=== PATIENT | female | born 1955 | race Caucasian/White ===

== ENCOUNTER 2017-10-18 10:23 | Inpatient (IN) | payer OTHER ==
[~2017-10-18] VITALS: Ht 162.6 cm; Wt 69.2 kg
[2017-10-18] MEDS ORDERED: ZOCOR 40MG40 MG PO (11:14)
[2017-10-18] MEDS ORDERED: VALIUM 5MG T5 MG/TAB PO (11:14)
[2017-10-18] MEDS ORDERED: NEXIUM 40MG40 MG PO (11:16)
[2017-10-18] MEDS ORDERED: PROCARDIA XL 6060 MG PO (11:16)
[2017-10-18 11:22] LABS: BASO # 0.1 (0.0-0.2); BASO % 0.6 % (0.0-2.0); EOS # 0.1 (0.0-0.7); EOS % 1.1 % (0-4.0); GRAN # 6.4 (1.4-6.5); HEMATOCRIT 41.3 % (37.0-47.0); LYMPH # 1.9 (1.2-3.4); LYMPH % 19.5 % (20.0-51.0); MEAN CELL VOLUME 93 fl (80.0-100.0); MEAN CORPUSCULAR HEMOGLOBIN 34 pg (27.0-31.0); MEAN CORPUSCULAR HGB CONC 36 g/dl (33.0-37.0); MEAN PLATELET VOLUME 8.1 fl (7.4-10.4); MONO # 1.1 (0.1-0.6); MONO % 11.5 % (1.7-9.3); PLATELET COUNT 352 K/mm3 (130-400); RED BLOOD COUNT 4.42 M/mm3 (4.10-5.30); REDCELL DISTRIBUTION WIDTH-CV 12.4 % (11.5-14.5)
[2017-10-18 11:26] LABS: ALANINE AMINOTRANSFERASE 46 U/L (9-52); ALBUMIN 4.3 gm/dL (3.5-5.0); ALKALINE PHOSPHATASE 52 U/L (50-136); ANION GAP 11 mmol/L (7-16); AST,SGOT 22 U/L (15-37); BILIRUBIN,TOTAL 0.8 mg/dL (0.0-1.0); BLOOD UREA NITROGEN 8 mg/dL (7-17); CALCIUM 9.4 mg/dL (8.4-10.2); CARBON DIOXIDE 23 mmol/L (22-30); CHLORIDE 91 mmol/L (98-107); CREATININE, serum 0.46 mg/dL (0.52-1.25); GLUCOSE 102 mg/dL (74-106); PHOSPHOROUS 3.3 mg/dL (2.5-4.5); POTASSIUM 4.1 mmol/L (3.4-5.0); SODIUM 125 mmol/L (137-145); TOTAL PROTEIN 7.1 gm/dL (6.4-8.2)
[2017-10-18 11:40] LABS: TROPONIN-I < 0.012 ng/mL (0.000-0.034)
[2017-10-18 15:15] LABS: COLLECTION METHOD CLEAN CATCH
[2017-10-18 15:23] LABS: BUDDING YEAST Present /hpf; PH 7 (5-8); SQUAMOUS EPITHELIAL 0-2 /hpf; URINE APPEARANCE Hazy; URINE BACTERIA Rare /hpf; URINE BILIRUBIN Negative (NEGATIVE); URINE BLOOD 1+ (NEGATIVE); URINE COLOR Yellow; URINE GLUCOSE Negative (NEGATIVE); URINE KETONE Negative (NEGATIVE); URINE LEUKOCYTE ESTERASE Negative (NEGATIVE); URINE NITRATE Negative (NEGATIVE); URINE PROTEIN(semi-quant) Negative (NEGATIVE); URINE UROBILINOGEN Negative (NEGATIVE)
[2017-10-18 16:44] VITALS: BP 119/67; PULSE 70; TEMP 97.8
[2017-10-18 16:45] VITALS: BP 119/67; PULSE 70; TEMP 97.8
[2017-10-18 19:22] VITALS: BP 125/72; PULSE 86; TEMP 98.2
[2017-10-18 20:45] VITALS: BP 119/75
[2017-10-18 23:47] VITALS: BP 124/68; PULSE 76; TEMP 100.3
[2017-10-19] VITALS (182 sets, daily range): BP systolic 101–139; BP diastolic 67–88; PULSE 65–83; TEMP 98.1–98.7; O2SAT 91–99
[2017-10-19 00:37] LABS: CALCIUM 8.7 mg/dL (8.4-10.2); CREATININE, serum 0.52 mg/dL (0.52-1.25); POTASSIUM 4.3 mmol/L (3.4-5.0)
[2017-10-19 01:46] LABS: BASO # 0.1 (0.0-0.2); BASO % 0.6 % (0.0-2.0); EOS # 0.1 (0.0-0.7); EOS % 1.3 % (0-4.0); GRAN # 6.2 (1.4-6.5); GRAN % 64.5 % (42.2-75.2); HEMATOCRIT 38.6 % (37.0-47.0); HEMOGLOBIN 13.9 g/dl (12.5-16.0); LYMPH # 2.1 (1.2-3.4); LYMPH % 22.4 % (20.0-51.0); MEAN CELL VOLUME 93 fl (80.0-100.0); MEAN CORPUSCULAR HEMOGLOBIN 34 pg (27.0-31.0); MEAN CORPUSCULAR HGB CONC 36 g/dl (33.0-37.0); MEAN PLATELET VOLUME 7.9 fl (7.4-10.4); MONO % 10.8 % (1.7-9.3); PLATELET COUNT 327 K/mm3 (130-400); RED BLOOD COUNT 4.14 M/mm3 (4.10-5.30); REDCELL DISTRIBUTION WIDTH-CV 12.6 % (11.5-14.5)
[2017-10-19 01:55] LABS: ALANINE AMINOTRANSFERASE 46 U/L (9-52); ALBUMIN 3.6 gm/dL (3.5-5.0); ALKALINE PHOSPHATASE 53 U/L (50-136); ANION GAP 8 mmol/L (7-16); AST,SGOT 24 U/L (15-37); BILIRUBIN,TOTAL 0.6 mg/dL (0.0-1.0); BLOOD UREA NITROGEN 7 mg/dL (7-17); CALCIUM 8.9 mg/dL (8.4-10.2); CARBON DIOXIDE 24 mmol/L (22-30); CHLORIDE 94 mmol/L (98-107); CREATININE, serum 0.46 mg/dL (0.52-1.25); GLUCOSE 94 mg/dL (74-106); MAGNESIUM 1.9 mg/dL (1.6-2.3); SODIUM 127 mmol/L (137-145); TOTAL PROTEIN 6.4 gm/dL (6.4-8.2)
[2017-10-19 02:10] LABS: TROPONIN-I < 0.012 ng/mL (0.000-0.034)
[2017-10-19 06:03] LABS: BASO # 0.1 (0.0-0.2); BASO % 0.6 % (0.0-2.0); EOS # 0.1 (0.0-0.7); EOS % 1.3 % (0-4.0); GRAN # 7.2 (1.4-6.5); GRAN % 65.5 % (42.2-75.2); HEMATOCRIT 40.4 % (37.0-47.0); HEMOGLOBIN 14.3 g/dl (12.5-16.0); LYMPH # 2.3 (1.2-3.4); LYMPH % 20.7 % (20.0-51.0); MEAN CELL VOLUME 95 fl (80.0-100.0); MEAN CORPUSCULAR HEMOGLOBIN 34 pg (27.0-31.0); MEAN CORPUSCULAR HGB CONC 35 g/dl (33.0-37.0); MEAN PLATELET VOLUME 8.2 fl (7.4-10.4); MONO # 1.3 (0.1-0.6); MONO % 11.5 % (1.7-9.3); PLATELET COUNT 371 K/mm3 (130-400); RED BLOOD COUNT 4.25 M/mm3 (4.10-5.30); REDCELL DISTRIBUTION WIDTH-CV 12.7 % (11.5-14.5)
[2017-10-19 06:15] LABS: CALCIUM 9.2 mg/dL (8.4-10.2); CREATININE, serum 0.52 mg/dL (0.52-1.25); POTASSIUM 3.6 mmol/L (3.4-5.0)
[2017-10-19 06:36] LABS: HIV 1/2 Antibodies Non-Reactive; HIV-1p24 Antigen Non-Reactive
[2017-10-19 14:03] LABS: FOLATE (FOLIC ACID) 13.1 ng/mL (7.0-31.4)
[2017-10-19 17:07] LABS: GLUCOSE,CSF 58 mg/dL (40-70); TOTAL PROTEIN,CSF 173 mg/dL (15-45)
[2017-10-19 17:34] LABS: CSF APPEARANCE CLEAR; CSF COLOR COLORLESS; CSF RBC 6 /mm3 (0-0)
[2017-10-19 17:35] LABS: CSF MONONUCLEAR 100 % (70-100); CSF POLYMORPHONUCLEAR 0 % (0-6)
[2017-10-20 02:09] LABS: RPR (VDRL) Non-reactive (())
[2017-10-20 03:35] VITALS: BP 120/75; PULSE 71; TEMP 98.8
[2017-10-20 06:52] LABS: BASO # 0.1 (0.0-0.2); BASO % 0.4 % (0.0-2.0); EOS # 0.1 (0.0-0.7); EOS % 0.4 % (0-4.0); GRAN # 7.6 (1.4-6.5); GRAN % 67.6 % (42.2-75.2); HEMATOCRIT 38.2 % (37.0-47.0); HEMOGLOBIN 13.6 g/dl (12.5-16.0); LYMPH # 2.1 (1.2-3.4); LYMPH % 18.6 % (20.0-51.0); MEAN CELL VOLUME 94 fl (80.0-100.0); MEAN CORPUSCULAR HEMOGLOBIN 34 pg (27.0-31.0); MEAN CORPUSCULAR HGB CONC 36 g/dl (33.0-37.0); MEAN PLATELET VOLUME 8.3 fl (7.4-10.4); MONO # 1.4 (0.1-0.6); MONO % 12.6 % (1.7-9.3); PLATELET COUNT 311 K/mm3 (130-400); RED BLOOD COUNT 4.05 M/mm3 (4.10-5.30); REDCELL DISTRIBUTION WIDTH-CV 12.5 % (11.5-14.5)
[2017-10-20 07:04] LABS: CALCIUM 8.9 mg/dL (8.4-10.2); CREATININE, serum 0.39 mg/dL (0.52-1.25); POTASSIUM 3.5 mmol/L (3.4-5.0)
[2017-10-20 07:21] VITALS: BP 117/64; PULSE 72; TEMP 98.5
[2017-10-20 12:52] VITALS: BP 106/63; PULSE 84; TEMP 98
[2017-10-20 16:29] VITALS: BP 120/64; PULSE 84
[2017-10-20 19:18] VITALS: BP 119/74; PULSE 80; TEMP 98.6
[2017-10-21] VITALS (7 sets, daily range): BP systolic 94–143; BP diastolic 59–77; PULSE 68–92; TEMP 97.8–100.5
[2017-10-21 06:52] LABS: CALCIUM 8.6 mg/dL (8.4-10.2); CREATININE, serum 0.38 mg/dL (0.52-1.25); POTASSIUM 3.3 mmol/L (3.4-5.0)
[2017-10-21 08:40] LABS: VITAMIN B1 148 nmol/L (70-180)
[2017-10-22 00:39] VITALS: TEMP 99
[2017-10-22 04:01] VITALS: BP 122/49; PULSE 63; TEMP 97.9
[2017-10-22 07:15] LABS: BASO # 0.1 (0.0-0.2); BASO % 0.6 % (0.0-2.0); EOS # 0.2 (0.0-0.7); EOS % 1.7 % (0-4.0); GRAN # 5.9 (1.4-6.5); GRAN % 62.5 % (42.2-75.2); HEMOGLOBIN 11.8 g/dl (12.5-16.0); LYMPH # 2.1 (1.2-3.4); LYMPH % 22.1 % (20.0-51.0); MEAN CELL VOLUME 95 fl (80.0-100.0); MEAN CORPUSCULAR HEMOGLOBIN 33 pg (27.0-31.0); MEAN CORPUSCULAR HGB CONC 35 g/dl (33.0-37.0); MEAN PLATELET VOLUME 8.5 fl (7.4-10.4); MONO # 1.2 (0.1-0.6); MONO % 12.8 % (1.7-9.3); PLATELET COUNT 263 K/mm3 (130-400); RED BLOOD COUNT 3.58 M/mm3 (4.10-5.30); REDCELL DISTRIBUTION WIDTH-CV 12.7 % (11.5-14.5)
[2017-10-22 07:25] LABS: CALCIUM 8.5 mg/dL (8.4-10.2); CREATININE, serum 0.39 mg/dL (0.52-1.25); POTASSIUM 3.3 mmol/L (3.4-5.0)
[2017-10-22 08:00] VITALS: BP 130/70; PULSE 74; TEMP 97.5
[2017-10-22 08:32] LABS: CSF IGG/ALBUMIN 0.12 (<=0.21); CSF SYNTHESIS RATE 33.93 mg/24 h (<=12); CSF,IGG 12.8 mg/dL (<=8.1); CSF-IGG INDEX 0.92 (<=0.85); IGG/ALBUMIN SERUM 0.13 (<=0.40)
[2017-10-22 11:40] VITALS: BP 98/61; PULSE 77; TEMP 98.2
[2017-10-22 15:52] VITALS: BP 112/63; PULSE 80; TEMP 98.2
[2017-10-22 19:47] VITALS: BP 126/64; PULSE 86; TEMP 100.2
[2017-10-23 00:16] VITALS: BP 122/73; PULSE 71; TEMP 97.8
[2017-10-23 03:59] VITALS: BP 126/77; PULSE 64; TEMP 98.4
[2017-10-23 07:17] LABS: BASO # 0.1 (0.0-0.2); BASO % 0.6 % (0.0-2.0); EOS # 0.2 (0.0-0.7); EOS % 1.8 % (0-4.0); GRAN % 61.1 % (42.2-75.2); HEMOGLOBIN 12.8 g/dl (12.5-16.0); LYMPH % 24.7 % (20.0-51.0); MEAN CELL VOLUME 96 fl (80.0-100.0); MEAN CORPUSCULAR HEMOGLOBIN 34 pg (27.0-31.0); MEAN CORPUSCULAR HGB CONC 35 g/dl (33.0-37.0); MEAN PLATELET VOLUME 8.7 fl (7.4-10.4); MONO # 0.9 (0.1-0.6); MONO % 11.4 % (1.7-9.3); PLATELET COUNT 312 K/mm3 (130-400); RED BLOOD COUNT 3.81 M/mm3 (4.10-5.30); REDCELL DISTRIBUTION WIDTH-CV 12.7 % (11.5-14.5)
[2017-10-23 07:33] VITALS: BP 134/72; PULSE 74; TEMP 99.2
[2017-10-23 07:35] LABS: CALCIUM 9.2 mg/dL (8.4-10.2); CREATININE, serum 0.43 mg/dL (0.52-1.25); POTASSIUM 3.5 mmol/L (3.4-5.0)
[2017-10-23 07:43] LABS: HEMATOCRIT 36.4 % (37.0-47.0)
[2017-10-23 12:07] VITALS: BP 100/53; PULSE 76; TEMP 98.2
[2017-10-23 16:28] VITALS: BP 108/64; PULSE 79; TEMP 99.9
[2017-10-23 20:20] VITALS: BP 113/67; PULSE 95; TEMP 99.4
[2017-10-24] VITALS (7 sets, daily range): BP systolic 99–136; BP diastolic 51–84; PULSE 66–84; TEMP 98–98.8
[2017-10-24 07:32] LABS: CALCIUM 9.1 mg/dL (8.4-10.2); CREATININE, serum 0.45 mg/dL (0.52-1.25)
[2017-10-25 04:41] VITALS: BP 128/68; PULSE 68; TEMP 98.2
[2017-10-25 07:04] LABS: CALCIUM 9.3 mg/dL (8.4-10.2); CREATININE, serum 0.4 mg/dL (0.52-1.25)
[2017-10-25 08:30] VITALS: BP 138/82; PULSE 72; TEMP 98.2
[2017-10-25 12:19] VITALS: BP 140/84; PULSE 80; TEMP 98.2
[2017-10-25 16:37] VITALS: BP 116/72; PULSE 83; TEMP 98.3
[2017-10-25 20:08] VITALS: BP 119/71; PULSE 80; TEMP 99.6
[2017-10-26] VITALS (7 sets, daily range): BP systolic 111–138; BP diastolic 51–89; PULSE 64–99; TEMP 97.9–98.4
[2017-10-26 09:46] LABS: CALCIUM 9.4 mg/dL (8.4-10.2); CREATININE, serum 0.45 mg/dL (0.52-1.25); POTASSIUM 4.2 mmol/L (3.4-5.0)
[2017-10-26 12:51] LABS: GLUCOSE,CSF 58 mg/dL (40-70); TOTAL PROTEIN,CSF 154 mg/dL (15-45)
[2017-10-26 13:08] LABS: CSF COLOR PINK
[2017-10-26 13:09] LABS: CSF APPEARANCE HAZY; CSF MONONUCLEAR 82 % (70-100); CSF POLYMORPHONUCLEAR 18 % (0-6); CSF RBC 6150 /mm3 (0-0)
[2017-10-27] VITALS (7 sets, daily range): BP systolic 106–128; BP diastolic 60–76; PULSE 62–85; TEMP 97.1–98.9
[2017-10-28 06:27] LABS: CALCIUM 10.2 mg/dL (8.4-10.2); CREATININE, serum 0.37 mg/dL (0.52-1.25)
[2017-10-28 07:51] VITALS: BP 102/67; PULSE 80; TEMP 98
[2017-10-28 11:08] VITALS: BP 108/71; PULSE 73; TEMP 98.2
[2017-10-28 16:36] VITALS: BP 114/70; PULSE 78; TEMP 98.7
[2017-10-28 20:05] VITALS: BP 99/61; PULSE 73; TEMP 96.5
[2017-10-28 23:52] VITALS: BP 121/77; PULSE 68; TEMP 97.5
[2017-10-29 03:43] VITALS: BP 115/69; PULSE 77; TEMP 97.8
[2017-10-29 07:16] LABS: BASO % 0.1 % (0.0-2.0); GRAN # 16.3 (1.4-6.5); GRAN % 85.1 % (42.2-75.2); HEMATOCRIT 40.7 % (37.0-47.0); HEMOGLOBIN 13.9 g/dl (12.5-16.0); LYMPH # 1.2 (1.2-3.4); LYMPH % 6.2 % (20.0-51.0); MEAN CELL VOLUME 99 fl (80.0-100.0); MEAN CORPUSCULAR HEMOGLOBIN 34 pg (27.0-31.0); MEAN CORPUSCULAR HGB CONC 34 g/dl (33.0-37.0); MEAN PLATELET VOLUME 8.4 fl (7.4-10.4); MONO # 1.4 (0.1-0.6); MONO % 7.2 % (1.7-9.3); PLATELET COUNT 461 K/mm3 (130-400); REDCELL DISTRIBUTION WIDTH-CV 14.2 % (11.5-14.5)
[2017-10-29 07:28] LABS: CALCIUM 10.6 mg/dL (8.4-10.2); CREATININE, serum 0.49 mg/dL (0.52-1.25); POTASSIUM 4.9 mmol/L (3.4-5.0)
[2017-10-29] MEDS ORDERED: TYLENOL 325MG325 MG PO (07:34)
[2017-10-29] MEDS ORDERED: ANTIVERT 25MG25 MG PO (07:35)
[2017-10-29 07:45] VITALS: BP 123/67; PULSE 81; TEMP 98.5
[2017-10-29 11:07] VITALS: BP 105/67; PULSE 64; TEMP 98.4
[2017-10-29 16:10] VITALS: BP 118/72; PULSE 70; TEMP 97.6
[2017-10-29 20:27] VITALS: BP 109/68; PULSE 63; TEMP 98.3
[2017-10-30] VITALS (7 sets, daily range): BP systolic 122–145; BP diastolic 65–87; PULSE 61–78; TEMP 97.5–98.4
[2017-10-30 05:47] LABS: HEMATOCRIT 42.3 % (37.0-47.0); HEMOGLOBIN 14.2 g/dl (12.5-16.0); MEAN CELL VOLUME 100 fl (80.0-100.0); MEAN CORPUSCULAR HEMOGLOBIN 34 pg (27.0-31.0); MEAN CORPUSCULAR HGB CONC 34 g/dl (33.0-37.0); MEAN PLATELET VOLUME 8.5 fl (7.4-10.4); PLATELET COUNT 479 K/mm3 (130-400); RED BLOOD COUNT 4.23 M/mm3 (4.10-5.30); REDCELL DISTRIBUTION WIDTH-CV 14.3 % (11.5-14.5)
[2017-10-30 06:03] LABS: CALCIUM 10.5 mg/dL (8.4-10.2); CREATININE, serum 0.51 mg/dL (0.52-1.25); POTASSIUM 3.9 mmol/L (3.4-5.0)
[2017-10-30 06:50] LABS: BAND 4 % (0-10); LYMPHOCYTE 15 % (20.0-51.0); NEUTROPHILS 75 % (42.0-75.2); PLATELET ESTIMATE INCREASED (NORMAL)
[2017-10-30 06:52] LABS: BURR CELLS 1+
[2017-10-31 04:21] VITALS: BP 131/85; PULSE 96; TEMP 97.5
[2017-10-31 06:31] LABS: BASO % 0.2 % (0.0-2.0); EOS % 0.1 % (0-4.0); GRAN # 14.4 (1.4-6.5); GRAN % 81.7 % (42.2-75.2); HEMATOCRIT 43.3 % (37.0-47.0); HEMOGLOBIN 14.8 g/dl (12.5-16.0); LYMPH # 1.5 (1.2-3.4); LYMPH % 8.5 % (20.0-51.0); MEAN CELL VOLUME 100 fl (80.0-100.0); MEAN CORPUSCULAR HEMOGLOBIN 34 pg (27.0-31.0); MEAN CORPUSCULAR HGB CONC 34 g/dl (33.0-37.0); MEAN PLATELET VOLUME 8.6 fl (7.4-10.4); MONO # 1.5 (0.1-0.6); MONO % 8.3 % (1.7-9.3); PLATELET COUNT 479 K/mm3 (130-400); RED BLOOD COUNT 4.35 M/mm3 (4.10-5.30)
[2017-10-31 06:49] LABS: CALCIUM 10.6 mg/dL (8.4-10.2); CREATININE, serum 0.51 mg/dL (0.52-1.25); POTASSIUM 3.2 mmol/L (3.4-5.0)
[2017-10-31 07:01] VITALS: BP 138/89; PULSE 82; TEMP 97.7
[2017-10-31 11:23] VITALS: BP 147/93; PULSE 80; TEMP 98.5
[2017-10-31 15:48] VITALS: BP 135/76; PULSE 102; TEMP 97.9
[2017-10-31 19:32] VITALS: BP 117/70; PULSE 73; TEMP 98.3
[2017-10-31 23:20] VITALS: BP 135/84; PULSE 82; TEMP 97.5
[2017-11-01 04:14] VITALS: BP 137/83; PULSE 78; TEMP 97.6
[2017-11-01 06:59] VITALS: BP 148/81; PULSE 60
[2017-11-01 07:04] LABS: BASO % 0.1 % (0.0-2.0); GRAN # 14.3 (1.4-6.5); GRAN % 80.9 % (42.2-75.2); HEMATOCRIT 42.9 % (37.0-47.0); HEMOGLOBIN 14.6 g/dl (12.5-16.0); LYMPH # 1.7 (1.2-3.4); LYMPH % 9.4 % (20.0-51.0); MEAN CELL VOLUME 99 fl (80.0-100.0); MEAN CORPUSCULAR HEMOGLOBIN 34 pg (27.0-31.0); MEAN CORPUSCULAR HGB CONC 34 g/dl (33.0-37.0); MEAN PLATELET VOLUME 8.7 fl (7.4-10.4); MONO # 1.5 (0.1-0.6); MONO % 8.3 % (1.7-9.3); PLATELET COUNT 425 K/mm3 (130-400); RED BLOOD COUNT 4.32 M/mm3 (4.10-5.30); REDCELL DISTRIBUTION WIDTH-CV 14.1 % (11.5-14.5)
[2017-11-01 07:14] LABS: CALCIUM 10.3 mg/dL (8.4-10.2); CREATININE, serum 0.47 mg/dL (0.52-1.25); POTASSIUM 3.8 mmol/L (3.4-5.0)
[2017-11-01 15:59] VITALS: BP 116/72; PULSE 87; TEMP 98.7
[2017-11-01 20:30] VITALS: BP 116/72; PULSE 87; TEMP 97.5
[2017-11-02] VITALS: BP 117/70; PULSE 73; TEMP 97.5
[2017-11-02 04:30] VITALS: BP 141/86; PULSE 69; TEMP 98.5
[2017-11-02 06:55] VITALS: BP 151/81; PULSE 82; TEMP 97.7
[2017-11-02] MEDS ORDERED: SEROQUEL 2525 MG/TAB PO (11:47)
[2017-11-02] MEDS ORDERED: PREDNISONE10 MG PO (11:50)
[2017-11-02 13:23] VITALS: BP 115/77; PULSE 66; TEMP 97.7
[2017-11-02 14:05] VITALS: BP 115/77; PULSE 66; TEMP 97.7
[2017-11-02 15:21] VITALS: BP 122/76; PULSE 81; TEMP 97.7
== END 2017-11-02 16:25 | DRG 41 ==
LOC: COL.ER 10:23 → MEDICAL 12:31 → ICU 10-19 02:00 → MEDICAL 10-19 07:21 → ICU 10-19 07:21 → MEDICAL 10-19 09:51
PROVIDERS: Emergency Medicine; Hospitalist; Nurse Practitioner Family; Physician Assistant; Psychiatry & Neurology Neurology; Student in an Organized Health Care Education/Training Program
PROC: 0JH606Z Insertion of Pacemaker, Dual Chamber into Chest Subcutaneous Tissue and Fascia, Open Approach (ICD-10-PCS; principal; 2017-10-19)
PROC: 02H63JZ Insertion of Pacemaker Lead into Right Atrium, Percutaneous Approach (ICD-10-PCS; 2017-10-19)
PROC: 02HK3JZ Insertion of Pacemaker Lead into Right Ventricle, Percutaneous Approach (ICD-10-PCS; 2017-10-19)
PROC: 009U3ZX Drainage of Spinal Canal, Percutaneous Approach, Diagnostic (ICD-10-PCS; 2017-10-19)
PROC: 009U3ZX Drainage of Spinal Canal, Percutaneous Approach, Diagnostic (ICD-10-PCS; 2017-10-26)
DX: G04.00 Acute disseminated encephalitis and encephalomyelitis, unspecified (principal); E22.2 Syndrome of inappropriate secretion of antidiuretic hormone; I44.2 Atrioventricular block, complete; G35 Multiple sclerosis; T38.0X5A Adverse effect of glucocorticoids and synthetic analogues, initial encounter; F29 Unspecified psychosis not due to a substance or known physiological condition; E87.6 Hypokalemia; R53.81 Other malaise; I10 Essential (primary) hypertension; E78.5 Hyperlipidemia, unspecified; K21.9 Gastro-esophageal reflux disease without esophagitis
CPT/HCPCS: 99232-AI; 99233-AI; 99239; C1785; C1894; C1898; G0378; G8999-GN; G9186-GN; J0133; J0690; J1265; J1650; J2250; J2405; J2930; J3010; J3480; J7030; J7050

== ENCOUNTER 2017-11-02 16:20 | Inpatient (IN) | payer OTHER ==
[~2017-11-02] VITALS: Ht 165.1 cm; Wt 80.1 kg
[~2017-11-02 16:20] MED LIST: ANTIVERT 25MG25 MG PO; NEXIUM 40MG40 MG PO; PREDNISONE10 MG PO; PROCARDIA XL 6060 MG PO; SEROQUEL 2525 MG/TAB PO; TYLENOL 325MG325 MG PO; VALIUM 5MG T5 MG/TAB PO; ZOCOR 40MG40 MG PO
[2017-11-02 16:36] VITALS: BP 133/82; PULSE 83; TEMP 98.2
[2017-11-03 04:31] VITALS: BP 147/85; PULSE 80; TEMP 98.3
[2017-11-03 05:30] VITALS: BP 147/85; PULSE 80; TEMP 98.3
[2017-11-03 17:55] VITALS: BP 119/72; PULSE 87; TEMP 97.8
[2017-11-04 04:54] VITALS: BP 128/72; PULSE 84; TEMP 98.3
[2017-11-04 08:00] LABS: CREATININE, serum 0.53 mg/dL (0.52-1.25); POTASSIUM 3.5 mmol/L (3.4-5.0)
[2017-11-04 18:38] VITALS: BP 112/71; PULSE 96; TEMP 97.5
[2017-11-05 05:23] VITALS: BP 118/68; PULSE 74; TEMP 98
[2017-11-05 07:44] LABS: BASO % 0.2 % (0.0-2.0); EOS # 0.1 (0.0-0.7); EOS % 0.7 % (0-4.0); GRAN % 58.4 % (42.2-75.2); HEMATOCRIT 46.7 % (37.0-47.0); HEMOGLOBIN 16.3 g/dl (12.5-16.0); LYMPH # 3.5 (1.2-3.4); LYMPH % 29.1 % (20.0-51.0); MEAN CELL VOLUME 98 fl (80.0-100.0); MEAN CORPUSCULAR HEMOGLOBIN 34 pg (27.0-31.0); MEAN CORPUSCULAR HGB CONC 35 g/dl (33.0-37.0); MEAN PLATELET VOLUME 8.9 fl (7.4-10.4); MONO # 1.2 (0.1-0.6); MONO % 10.2 % (1.7-9.3); PLATELET COUNT 335 K/mm3 (130-400); RED BLOOD COUNT 4.76 M/mm3 (4.10-5.30); REDCELL DISTRIBUTION WIDTH-CV 14.1 % (11.5-14.5)
[2017-11-05 16:12] VITALS: BP 98/69; PULSE 72; TEMP 98.5
[2017-11-06 05:03] VITALS: BP 135/86; PULSE 82; TEMP 98.4
[2017-11-06 17:25] VITALS: BP 122/76; PULSE 105; TEMP 98.1
[2017-11-07 05:15] VITALS: BP 113/76; PULSE 70; TEMP 98.3
[2017-11-07 18:58] VITALS: BP 108/66; PULSE 70; TEMP 97.8
[2017-11-08 05:05] VITALS: BP 136/84; PULSE 76; TEMP 98.1
[2017-11-08 14:00] VITALS: BP 110/58; PULSE 108; TEMP 97.4
[2017-11-09 05:38] VITALS: BP 131/78; PULSE 77; TEMP 98.2
[2017-11-09 15:22] VITALS: BP 119/85; PULSE 101; TEMP 97.8
[2017-11-10 05:41] VITALS: BP 104/79; PULSE 64; TEMP 98.3
[2017-11-10 17:23] VITALS: BP 92/47; PULSE 109; TEMP 97.5
[2017-11-11 05:27] VITALS: BP 120/76; PULSE 83; TEMP 97.7
[2017-11-11 18:09] VITALS: BP 103/71; PULSE 95; TEMP 97.7
[2017-11-12 04:06] VITALS: BP 108/77; PULSE 87; TEMP 98.1
[2017-11-12 15:58] VITALS: BP 102/70; PULSE 95; TEMP 97.5
[2017-11-13 06:00] VITALS: BP 120/79; PULSE 72; TEMP 97.8
[2017-11-13 17:42] VITALS: BP 95/68; PULSE 85; TEMP 98.1
[2017-11-14 06:00] VITALS: BP 119/74; PULSE 75; TEMP 97.9
[2017-11-14 17:14] VITALS: BP 118/71; PULSE 90; TEMP 98.3
[2017-11-15 06:00] VITALS: BP 108/75; PULSE 82; TEMP 98
[2017-11-15 19:00] VITALS: BP 108/76; PULSE 97; TEMP 98.1
[2017-11-16 06:30] VITALS: BP 129/80; PULSE 77; TEMP 98.1
[2017-11-16] MEDS ORDERED: PREDNISONE10 MG PO (13:00)
[2017-11-16] MEDS ORDERED: ARTIFICIAL TEAR15 M7 OP (13:01)
[2017-11-16] MEDS ORDERED: SEROQUEL50 MG PO (13:02)
== END 2017-11-16 14:45 | disposition home or self-care (01) | DRG 98 ==
PROVIDERS: Internal Medicine
DX: G04.00 Acute disseminated encephalitis and encephalomyelitis, unspecified (principal); E87.1 Hypo-osmolality and hyponatremia; I10 Essential (primary) hypertension; F17.210 Nicotine dependence, cigarettes, uncomplicated; Z95.0 Presence of cardiac pacemaker; F09 Unspecified mental disorder due to known physiological condition; T38.0X5A Adverse effect of glucocorticoids and synthetic analogues, initial encounter; R44.1 Visual hallucinations; E87.6 Hypokalemia
CPT/HCPCS: 99222-AI; 99232-AI; 99239; J1650; J7512

== ENCOUNTER 2017-12-09 09:45 | Outpatient (RCR) | payer OTHER ==
[~2017-12-09 09:45] MED LIST changes: +ARTIFICIAL TEAR15 M7 OP; +SEROQUEL50 MG PO
[2017-12-10] MEDS ORDERED: CIPRO 500MG TA500 MG PO (21:56)
[2017-12-10] MEDS ORDERED: TRANSDERM-0.5 MG/21 TD (21:57)
[2017-12-10] MEDS ORDERED: NEXIUM 40MG40 MG PO (21:59)
== END 2018-02-21 | disposition home or self-care (01) ==
LOC: MKS.ESL.PT
DX: G04.00 Acute disseminated encephalitis and encephalomyelitis, unspecified (principal); R53.81 Other malaise; Z95.0 Presence of cardiac pacemaker; Z79.01 Long term (current) use of anticoagulants; Z79.899 Other long term (current) drug therapy; Z86.718 Personal history of other venous thrombosis and embolism

== ENCOUNTER 2017-12-10 20:22 | Inpatient (IN) | payer OTHER ==
[~2017-12-10] VITALS: Ht 160 cm; Wt 73.1 kg
[2017-12-10] VITALS (26 sets, daily range): BP systolic 116; BP diastolic 73; PULSE 79; TEMP 98.5; O2SAT 92–98
[2017-12-10 20:56] LABS: BASO # 0.1 (0.0-0.2); BASO % 0.7 % (0.0-2.0); EOS % 0.4 % (0-4.0); GRAN # 5.3 (1.4-6.5); HEMOGLOBIN 14.1 g/dl (12.5-16.0); LYMPH % 23.7 % (20.0-51.0); MEAN CELL VOLUME 99 fl (80.0-100.0); MEAN CORPUSCULAR HEMOGLOBIN 33 pg (27.0-31.0); MEAN CORPUSCULAR HGB CONC 34 g/dl (33.0-37.0); MEAN PLATELET VOLUME 8.7 fl (7.4-10.4); MONO # 1.1 (0.1-0.6); MONO % 12.8 % (1.7-9.3); PLATELET COUNT 392 K/mm3 (130-400); RED BLOOD COUNT 4.25 M/mm3 (4.10-5.30); REDCELL DISTRIBUTION WIDTH-CV 12.9 % (11.5-14.5)
[2017-12-10 21:14] LABS: ALBUMIN 4.2 gm/dL (3.5-5.0); BILIRUBIN,TOTAL 0.7 mg/dL (0.0-1.0); C-REACTIVE PROTEIN 0.6 mg/dL (0.0-0.9); CALCIUM 9.8 mg/dL (8.4-10.2); CREATININE, serum 0.54 mg/dL (0.52-1.25); POTASSIUM 3.5 mmol/L (3.4-5.0); TOTAL PROTEIN 7.5 gm/dL (6.4-8.2)
[2017-12-10 21:43] LABS: COLLECTION METHOD CATHETER
[2017-12-10 21:54] LABS: GRANULAR CAST >12 /lpf; HYALINE CAST >12 /lpf; MUCOUS Present /lpf; PH 5 (5-8); URINE APPEARANCE Cloudy; URINE BACTERIA None Seen /hpf; URINE BILIRUBIN Negative (NEGATIVE); URINE BLOOD Negative (NEGATIVE); URINE COLOR Amber; URINE GLUCOSE Negative (NEGATIVE); URINE KETONE Trace (NEGATIVE); URINE LEUKOCYTE ESTERASE Negative (NEGATIVE); URINE NITRATE Negative (NEGATIVE); URINE PROTEIN(semi-quant) 1+ (NEGATIVE)
[2017-12-10] MEDS ORDERED: CIPRO 500MG TA500 MG PO (21:56)
[2017-12-10] MEDS ORDERED: TRANSDERM-0.5 MG/21 TD (21:57)
[2017-12-10] MEDS ORDERED: NEXIUM 40MG40 MG PO (21:59)
[2017-12-11] VITALS (227 sets, daily range): BP systolic 99–128; BP diastolic 47–72; PULSE 59–89; TEMP 97.8–98.3; O2SAT 76–98
[2017-12-11 06:17] LABS: BASO % 0.6 % (0.0-2.0); EOS # 0.1 (0.0-0.7); EOS % 0.9 % (0-4.0); GRAN # 3.4 (1.4-6.5); GRAN % 51.7 % (42.2-75.2); HEMATOCRIT 40.2 % (37.0-47.0); HEMOGLOBIN 13.3 g/dl (12.5-16.0); LYMPH # 2.1 (1.2-3.4); MEAN CELL VOLUME 100 fl (80.0-100.0); MEAN CORPUSCULAR HEMOGLOBIN 33 pg (27.0-31.0); MEAN CORPUSCULAR HGB CONC 33 g/dl (33.0-37.0); MEAN PLATELET VOLUME 8.4 fl (7.4-10.4); MONO # 0.9 (0.1-0.6); MONO % 14.5 % (1.7-9.3); PLATELET COUNT 374 K/mm3 (130-400); RED BLOOD COUNT 4.02 M/mm3 (4.10-5.30); REDCELL DISTRIBUTION WIDTH-CV 12.8 % (11.5-14.5)
[2017-12-11 06:32] LABS: ALBUMIN 3.6 gm/dL (3.5-5.0); BILIRUBIN,TOTAL 0.6 mg/dL (0.0-1.0); C-REACTIVE PROTEIN 0.6 mg/dL (0.0-0.9); CALCIUM 8.9 mg/dL (8.4-10.2); CREATININE, serum 0.46 mg/dL (0.52-1.25); POTASSIUM 3.3 mmol/L (3.4-5.0); TOTAL PROTEIN 6.6 gm/dL (6.4-8.2)
[2017-12-11 07:20] LABS: ERYTHROCYTE SEDIMENTATION RATE 21 mm/hr (0-30)
[2017-12-11 22:38] LABS: ARTERIAL BLD GAS O2 SATURATION 92.4 % (92-100); ARTERIAL BLD GAS TCO2 CT 26.1; ARTERIAL BLOOD GAS BASE EXCESS 0.8 (-2-2); ARTERIAL BLOOD GAS HCO3 24.9 meq/L (22-26); ARTERIAL BLOOD GAS PCO2 38.5 mmHg (35-45); ARTERIAL BLOOD GAS PO2 65.6 mmHg (80-100); ARTERIAL BLOOD GAS pH 7.43 (7.35-7.45)
[2017-12-12] VITALS (424 sets, daily range): BP systolic 91–136; BP diastolic 66–91; PULSE 72–93; TEMP 97.5–98.7; O2SAT 63–100
[2017-12-12 06:00] LABS: BASO # 0.1 (0.0-0.2); BASO % 0.9 % (0.0-2.0); EOS # 0.1 (0.0-0.7); EOS % 1.1 % (0-4.0); GRAN # 5.3 (1.4-6.5); GRAN % 66.4 % (42.2-75.2); HEMATOCRIT 41.2 % (37.0-47.0); HEMOGLOBIN 13.6 g/dl (12.5-16.0); LYMPH # 1.4 (1.2-3.4); MEAN CELL VOLUME 100 fl (80.0-100.0); MEAN CORPUSCULAR HEMOGLOBIN 33 pg (27.0-31.0); MEAN CORPUSCULAR HGB CONC 33 g/dl (33.0-37.0); MEAN PLATELET VOLUME 8.7 fl (7.4-10.4); MONO # 1.1 (0.1-0.6); MONO % 13.3 % (1.7-9.3); PLATELET COUNT 375 K/mm3 (130-400); RED BLOOD COUNT 4.12 M/mm3 (4.10-5.30); REDCELL DISTRIBUTION WIDTH-CV 12.7 % (11.5-14.5)
[2017-12-12 06:26] LABS: ALBUMIN 3.6 gm/dL (3.5-5.0); BILIRUBIN,TOTAL 0.8 mg/dL (0.0-1.0); CALCIUM 8.9 mg/dL (8.4-10.2); CREATININE, serum 0.37 mg/dL (0.52-1.25); POTASSIUM 3.2 mmol/L (3.4-5.0); TOTAL PROTEIN 6.5 gm/dL (6.4-8.2)
[2017-12-13] VITALS (594 sets, daily range): BP systolic 97–134; BP diastolic 61–95; PULSE 61–71; TEMP 96.9–98.5; O2SAT 66–100
[2017-12-13 05:19] LABS: BASO % 0.5 % (0.0-2.0); EOS # 0.1 (0.0-0.7); EOS % 1.2 % (0-4.0); GRAN # 4.9 (1.4-6.5); HEMATOCRIT 40.5 % (37.0-47.0); HEMOGLOBIN 13.1 g/dl (12.5-16.0); LYMPH # 1.5 (1.2-3.4); LYMPH % 20.3 % (20.0-51.0); MEAN CELL VOLUME 103 fl (80.0-100.0); MEAN CORPUSCULAR HEMOGLOBIN 33 pg (27.0-31.0); MEAN CORPUSCULAR HGB CONC 32 g/dl (33.0-37.0); MEAN PLATELET VOLUME 8.7 fl (7.4-10.4); MONO % 13.7 % (1.7-9.3); PLATELET COUNT 349 K/mm3 (130-400); RED BLOOD COUNT 3.94 M/mm3 (4.10-5.30); REDCELL DISTRIBUTION WIDTH-CV 12.6 % (11.5-14.5)
[2017-12-13 05:30] LABS: CREATININE, serum 0.36 mg/dL (0.52-1.25); POTASSIUM 3.9 mmol/L (3.4-5.0)
[2017-12-13 08:11] LABS: ARTERIAL BLD GAS O2 SATURATION 95.4 % (92-100); ARTERIAL BLD GAS TCO2 CT 28.4; ARTERIAL BLOOD GAS BASE EXCESS 0.8 (-2-2); ARTERIAL BLOOD GAS HCO3 26.9 meq/L (22-26); ARTERIAL BLOOD GAS PO2 82.1 mmHg (80-100); ARTERIAL BLOOD GAS pH 7.36 (7.35-7.45)
[2017-12-14 09:33] LABS: ANGIOTENSIN CONVERTING ENZYME 35 U/L (8 - 53)
[2017-12-14 10:36] LABS: LUPUS ANTICOAGULANT INR 1.2 (()); LUPUS ANTICOAGULANT PT 12.7 sec (())
[2017-12-14 22:53] LABS: C-ANCA 15 U/mL (0-99)
== END 2017-12-13 15:00 | disposition short-term general hospital (02) | DRG 124 ==
LOC: COL.ER 20:22 → ICU 22:02 → MEDICAL 12-11 06:24 → ICU 12-11 08:06 → MEDICAL 12-11 08:06 → ICU 12-12 00:52 → MEDICAL 12-12 00:52 → ICU 12-12 00:52
PROVIDERS: Emergency Medicine; Hospitalist; Internal Medicine; Internal Medicine Critical Care Medicine; Nurse Practitioner Family; Psychiatry & Neurology Neurology
DX: R44.1 Visual hallucinations (principal); J96.01 Acute respiratory failure with hypoxia; E87.1 Hypo-osmolality and hyponatremia; R06.3 Periodic breathing; R47.1 Dysarthria and anarthria; R27.8 Other lack of coordination; I10 Essential (primary) hypertension; Z95.0 Presence of cardiac pacemaker; E78.5 Hyperlipidemia, unspecified; Z87.891 Personal history of nicotine dependence; R33.9 Retention of urine, unspecified; R09.02 Hypoxemia
CPT/HCPCS: 99222; 99232-AI; 99233-AI; 99239; A9585; G0378; J1630; J1650; J2060; J2185; J7030; Q9967

== ENCOUNTER 2018-05-04 01:54 | Inpatient (IN) | payer OTHER ==
[2018-05-04] VITALS (539 sets, daily range): BP systolic 72–148; BP diastolic 47–76; PULSE 63–70; TEMP 98.5–99.7; O2SAT 48–100
[~2018-05-04] VITALS: Ht 160 cm; Wt 71.1 kg
[~2018-05-04 01:54] MED LIST changes: +CIPRO 500MG TA500 MG PO; +TRANSDERM-0.5 MG/21 TD
[2018-05-04 02:57] LABS: ARTERIAL BLD GAS O2 SATURATION 97.8 % (92-100); ARTERIAL BLD GAS TCO2 CT 36.1; ARTERIAL BLOOD GAS BASE EXCESS 8.8 (-2-2); ARTERIAL BLOOD GAS HCO3 34.4 meq/L (22-26); ARTERIAL BLOOD GAS PCO2 55.7 mmHg (35-45); ARTERIAL BLOOD GAS pH 7.41 (7.35-7.45)
[2018-05-04 03:02] LABS: MEAN CELL VOLUME 111 fl (80.0-100.0); MEAN CORPUSCULAR HGB CONC 30 g/dl (33.0-37.0); MEAN PLATELET VOLUME 9.3 fl (7.4-10.4); PLATELET COUNT 251 K/mm3 (130-400); REDCELL DISTRIBUTION WIDTH-CV 19.5 % (11.5-14.5)
[2018-05-04 03:06] LABS: HEMATOCRIT 23.3 % (37.0-47.0); MEAN CORPUSCULAR HEMOGLOBIN 33 pg (27.0-31.0)
[2018-05-04 03:10] LABS: PROTHROMBIN TIME 11.5 SECONDS (9.7-12.8)
[2018-05-04 03:13] LABS: ALBUMIN 3.1 gm/dL (3.5-5.0); BILIRUBIN,TOTAL 0.4 mg/dL (0.0-1.0); CALCIUM 10.5 mg/dL (8.4-10.2); CREATININE, serum 0.7 mg/dL (0.52-1.25); PARTIAL THROMBOPLASTIN TIME 36.3 SECONDS (26.0-37.0); POTASSIUM 4.4 mmol/L (3.4-5.0); TOTAL PROTEIN 6.3 gm/dL (6.4-8.2)
[2018-05-04 03:25] LABS: TROPONIN-I 0.026 ng/mL (0.000-0.035)
[2018-05-04 03:52] LABS: BAND 33 % (0-10); HYPOCHROMIA 3+; LYMPHOCYTE 8 % (20.0-51.0); NEUTROPHILS 57 % (42.0-75.2); PLATELET ESTIMATE NORMAL (NORMAL)
[2018-05-04 03:53] LABS: ANISOCYTOSIS 2+; STOMATOCYTE 2+
[2018-05-04 05:16] LABS: COLLECTION METHOD CATHETER
[2018-05-04 05:23] LABS: MUCOUS Present /lpf; PH 5 (5-8); SQUAMOUS EPITHELIAL 0-2 /hpf; URINE APPEARANCE Hazy; URINE BACTERIA Rare /hpf; URINE BILIRUBIN Negative (NEGATIVE); URINE BLOOD Negative (NEGATIVE); URINE COLOR Yellow; URINE GLUCOSE 3+ (NEGATIVE); URINE KETONE Negative (NEGATIVE); URINE LEUKOCYTE ESTERASE Trace (NEGATIVE); URINE NITRATE Negative (NEGATIVE); URINE PROTEIN(semi-quant) Negative (NEGATIVE); URINE RBC 0-2 /hpf
[2018-05-04] MEDS ORDERED: PERIDEX (CHLOR480 ML MM (05:44)
[2018-05-04] MEDS ORDERED: ALBUTEROL0.83 MG/ML IH (05:44)
[2018-05-04] MEDS ORDERED: LIQUIFILM TEARS15 ML OU (05:45)
[2018-05-04] MEDS ORDERED: PROBIOTIC ACID1 EAC3 PO (05:45)
[2018-05-04] MEDS ORDERED: ASPERCREME1 EACH TP (05:46)
--- NOTE | 2018-05-04 07:06 | NUR ---
Patient arrives at this time via stretcher with belongings. Patient transferred to unit bed via slide board. Patient attached to monitoring equipment.
--- NOTE | 2018-05-04 07:22 | NUR ---
Patient transported from ED 9 to ICU 8 on her home trilogy ventilator without complications.
--- NOTE | 2018-05-04 07:25 | NUR ---
RECEIVED REPORT FROM JUHI SORENSON. PATIENT JUST GOT TRANSFERED FROM THE EMERGENCY ROOM. I COMPLETED PATIENTS INITIAL ASSESSMENT, CHECKED PEG TUBE, AND GOT THE PATIENT SETTLED. ALL MEDICATIONS VARIFIED. WILL CONTINUE TO MONITOR PATIENT THROUGHOUT SHIFT.
--- NOTE | 2018-05-04 07:31 | NUR ---
Bedside report given to JUHI Chua and JUHI Sosa. Assisted with settling the patient into the room. Transfer of care at this time.
--- NOTE | 2018-05-04 08:59 | NUR ---
Patient is unable to communicate due to being trached and on the venilator. Patient seems to be resting peacefully. Called the and asked if he can return to the hospital as soon as possible to discuss plan of care.
--- NOTE | 2018-05-04 10:45 | NUR ---
Dr Rodriguez notified of critical troponin value. No new orders received at this time.
[2018-05-04 11:25] LABS: ARTERIAL BLD GAS O2 SATURATION 84.6 % (92-100); ARTERIAL BLD GAS TCO2 CT 28.8; ARTERIAL BLOOD GAS BASE EXCESS 4.2 (-2-2); ARTERIAL BLOOD GAS HCO3 27.7 meq/L (22-26); ARTERIAL BLOOD GAS PCO2 36.6 mmHg (35-45)
[2018-05-04 11:26] LABS: ARTERIAL BLOOD GAS PO2 44.3 mmHg (80-100)
[2018-05-04 12:19] LABS: HEMATOCRIT 21.2 % (37.0-47.0); HEMOGLOBIN 6.6 g/dl (12.5-16.0)
--- NOTE | 2018-05-04 12:25 | NUR ---
Called Dr. Rodriguez about critical H&H. New orders received.
[2018-05-04 12:30] LABS: CREATININE, serum 0.54 mg/dL (0.52-1.25); POTASSIUM 4.2 mmol/L (3.4-5.0)
--- NOTE | 2018-05-04 12:41 | NUR ---
Discharged patient. Patient had all belongings when leaving.
--- NOTE | 2018-05-04 12:55 | NUR ---
COREEN and COREEN downing met with the patient's , Jonah, and a family friend to discuss discharge plan. The patient's reports that the patient discharged from [facility] yesterday, 05/03, on hospice through [facility]. The patient's provided COREEN with their contact information ( ). The patient's stated that the patient became unresponsive, that that her heart was still beating, so he called 911. The patient's reports that he would still like to focus on comfort. COREEN informed the patient's PA and a palliative care consult was ordered. COREEN collaborated with palliative care nurse, Joanna, and a family meeting was set for today, 05/04, at 1400. COREEN then contacted [facility] to update. [facility] reports that they will try and have one of their representatives come to the hospital to attend the meeting at 1400. The patient's advanced directives are in her chart. SW to continue to follow.
[2018-05-04 12:57] LABS: TROPONIN-I 6 HR POST INITIAL 0.042 ng/mL (0.000-0.034)
--- NOTE | 2018-05-04 13:19 | NUR ---
Got off the phone with Dr. Osman. Updated him on the patient status.
--- NOTE | 2018-05-04 14:42 | NUR ---
COREEN and COREEN downing attended a family meeting with the patient's , Jonah. Also present was the hospitalist, nurse, and palliative care nurse (Joanna). The patient's began by explaining the events that led up to the patient being admitted into the hospital. The patient's reports that the patient was discharged from [facility] yesterday, 05/03, with hospice services through [facility]. He states that [facility] had partnered with another home health agency to be able to be in the patient's home 4 times a week, two hours each day. The patient's reports that he would like for the patient to become more stable, before returning home and resuming hospice services. All the husbands questions were answered by the team. SW contacted and updated [facility] and will continue to follow.
--- NOTE | 2018-05-04 16:12 | NUR ---
Palliative care nurse participated in meeting with , social work and with Dr Rodriguez. Events leading up to this admission were reported by . At this time he would like for her to remain in the hospital to stabilize and then would very much like to return home with hospice, recognizing that at that point her focus of care would be on comfort and being at home.
--- NOTE | 2018-05-04 16:22 | NUR ---
Jeff Darden, with [facility], contacted to give an update on the events that led to the patient being hospitalized. Jeff reports that the contacted the agency and they informed the that they would be there in fourty-five minutes. Jeff reports that they could still provide hospice services to the patient upon discharge, but that she believes switching to an agency in [place] would be in the best interest for the patient and patient's . Jeff reports that she had been working with a rifle case repairer, Brissa Fernandez, through [facility] to get the patient approved for 25-38 hours a week for private care duty services through [facility]. Jeff reports that she will have this conversation with the patient's , if he contacts her. to follow up with the patient's and continue to follow. Brissa Fernandez: Leah Cherry Picker Operator ph#[phone] Jeff Darden ph#[phone]
[2018-05-04 16:54] LABS: ALBUMIN 3.1 gm/dL (3.5-5.0); BILIRUBIN,TOTAL 0.6 mg/dL (0.0-1.0); CALCIUM 10.4 mg/dL (8.4-10.2); CREATININE, serum 0.58 mg/dL (0.52-1.25); PHOSPHOROUS 3.2 mg/dL (2.5-4.5); POTASSIUM 3.7 mmol/L (3.4-5.0); TOTAL PROTEIN 6.5 gm/dL (6.4-8.2)
--- NOTE | 2018-05-04 17:28 | NUR ---
NO SADATION VACATION NEEDED. PATIENT IS NOT CURRENTLY ON SEDATION.
--- NOTE | 2018-05-04 18:44 | NUR ---
TALKED WITH DR OLIVA CHANGED VENT SETTINGS TO 420 VT, RATE OF 16, PEEP OF 10, FI02 80% DUE TO ALKALOTIC ABG. WILL REPEATE ABG AT 0 TO ASSESS CHANGES MADE BEING BENEFICIAL. WILL CALL [facility] WITH ABG RESULTS AND ASSESS FROM THERE.
--- NOTE | 2018-05-04 18:52 | NUR ---
SPOKE WITH REGARDING HOME MEDS. WAS UNSURE OF HOME MEDS AND DOSES. CONTACTED [facility] TO FAX OF MEDICATION LIST AND HAVE NOT HEARD BACK AT THIS TIME.
--- NOTE | 2018-05-04 19:12 | NUR ---
GAVE REPORT TO JUHI SORENSON. PATIENT WAS RESTING IN BED.
--- NOTE | 2018-05-04 19:15 | NUR ---
Bedside report received from JUHI Chua.
--- NOTE | 2018-05-04 20:00 | NUR ---
Assessment complete at this time. Patient resting in bed on the ventilator. Patient shakes her head no when asked if she is in any pain. Assessment reveals coarse lung sounds with diminished bases. Provided trach suctioning as patient was coughing. Suctioned small amount of thick white sputum. Patient repositioned for comfort. No other needs at this time. Will continue to monitor. Call light within reach.
[2018-05-04 22:31] LABS: ARTERIAL BLD GAS TCO2 CT 29.5; ARTERIAL BLOOD GAS BASE EXCESS 5.6 (-2-2); ARTERIAL BLOOD GAS HCO3 28.4 meq/L (22-26); ARTERIAL BLOOD GAS PCO2 35.6 mmHg (35-45); ARTERIAL BLOOD GAS PO2 80.2 mmHg (80-100); ARTERIAL BLOOD GAS pH 7.52 (7.35-7.45)
[2018-05-04 23:49] LABS: HEMATOCRIT 22.9 % (37.0-47.0); HEMOGLOBIN 7.5 g/dl (12.5-16.0)
[2018-05-05] VITALS (230 sets, daily range): BP systolic 114; BP diastolic 58; PULSE 60; TEMP 98.9; O2SAT 86–100
--- NOTE | 2018-05-05 | NUR ---
Patient resting on the ventilator. Has had to be suctioned several times with production of small amouts of thick white sputum. Patient has no complaints of pain. Repositioned for comfort. Assessment reveals no changes from previous. No further needs at this time. Will continue to monitor. Call light within reach.
--- NOTE | 2018-05-05 03:20 | NUR ---
CALLED [facility] WITH ABG RESULTS FROM 05/04/18 AT 2130. MADE VENT CHANGES TO VT 420, RATE OF 12, PEEP OF 10 AND FI02 AT 70% ABG WILL BE DONE AT 0500 TO ASSESS CHANGES.
--- NOTE | 2018-05-05 08:30 | NUR ---
PICC intact right upper arm. Impregnated disc with large amount of red drainage noted. With sterile technique right upper arm PICC dressing change done with insertion site cleansed with ChloraPrep 1, chlorhexidine impregnated disc applied, skin prep, StatLock, and Tegaderm applied. No signs or symptoms of IV complications noted. Patient unable to address any concerns. Arm wrapped with Jamie to protect catheter.
--- NOTE | 2018-05-05 13:42 | NUR ---
Jeff Darden, with [facility], contacted COREEN to inform that she did speak to the patient's and had informed him of how she thinks it would be in the best interest of him and the patient to switch to a hospice agency in [place]. Jeff then stated that she did speak to the about [facility] and how he was in agreeance to switch to them. The patient's then contacted COREEN. The patient's informed COREEN that he would like to switch to a hospice agency in [place] and that he would be interested in [facility]. COREEN then contacted and faxed some of the patient's information to Ellis at [facility]. Ellis reports that he will contact the patient's and meet with him to discuss the husbands and patients needs. COREEN also collaborated with palliative care nurse, Joanna, to figure out what hospice agencies could provide the care the patient needs. [facility] report that they are unable to. [facility] reports that they could. [facility] report that they need to check with their phlebotomist medical lab assistant. COREEN to continue to follow.
[2018-05-06] VITALS (800 sets, daily range): BP systolic 101–122; BP diastolic 42–59; PULSE 67–79; TEMP 99–99.8; O2SAT 68–100
[2018-05-06 11:32] LABS: BASO % 0.3 % (0.0-2.0); EOS # 0.1 (0.0-0.7); EOS % 1.5 % (0-4.0); GRAN # 4.5 (1.4-6.5); GRAN % 72.6 % (42.2-75.2); LYMPH # 0.6 (1.2-3.4); LYMPH % 10.2 % (20.0-51.0); MEAN CORPUSCULAR HGB CONC 32 g/dl (33.0-37.0); MEAN PLATELET VOLUME 9.2 fl (7.4-10.4); MONO # 0.9 (0.1-0.6); MONO % 15.1 % (1.7-9.3); PLATELET COUNT 215 K/mm3 (130-400); RED BLOOD COUNT 2.18 M/mm3 (4.10-5.30); REDCELL DISTRIBUTION WIDTH-CV 21.7 % (11.5-14.5)
[2018-05-06 11:33] LABS: HEMATOCRIT 22.5 % (37.0-47.0); HEMOGLOBIN 7.2 g/dl (12.5-16.0); MEAN CELL VOLUME 103 fl (80.0-100.0); MEAN CORPUSCULAR HEMOGLOBIN 33 pg (27.0-31.0)
[2018-05-06 11:37] LABS: CALCIUM 10.2 mg/dL (8.4-10.2); CREATININE, serum 0.54 mg/dL (0.52-1.25); MAGNESIUM 1.7 mg/dL (1.6-2.3); PHOSPHOROUS 3.4 mg/dL (2.5-4.5); POTASSIUM 3.4 mmol/L (3.4-5.0)
[2018-05-06 11:43] LABS: BASO % 0.3 % (0.0-2.0); EOS # 0.1 (0.0-0.7); EOS % 1.9 % (0-4.0); GRAN # 5.2 (1.4-6.5); GRAN % 68.9 % (42.2-75.2); HEMATOCRIT 23.9 % (37.0-47.0); HEMOGLOBIN 7.4 g/dl (12.5-16.0); LYMPH # 0.9 (1.2-3.4); LYMPH % 12.6 % (20.0-51.0); MEAN CELL VOLUME 103 fl (80.0-100.0); MEAN CORPUSCULAR HEMOGLOBIN 32 pg (27.0-31.0); MEAN CORPUSCULAR HGB CONC 31 g/dl (33.0-37.0); MEAN PLATELET VOLUME 9.1 fl (7.4-10.4); MONO # 1.2 (0.1-0.6); MONO % 15.9 % (1.7-9.3); PLATELET COUNT 245 K/mm3 (130-400); RED BLOOD COUNT 2.32 M/mm3 (4.10-5.30); REDCELL DISTRIBUTION WIDTH-CV 20.9 % (11.5-14.5)
--- NOTE | 2018-05-06 13:36 | NUR ---
Yesterday I contacted the four agencies of hospice that serve this area and inquired about their availability to provide hospice services to this pt with the use of trilogy ventilator with trach and feeding tube in the pt's home. [facility] did agree to meet with family and take this pt if family was agreable. [facility] hospice and [facility] both said they could not take a patient requiring this type of care. [facility] was awaiting more information when it became available.
[2018-05-06 13:45] LABS: ALBUMIN 2.8 gm/dL (3.5-5.0); BILIRUBIN,TOTAL 0.4 mg/dL (0.0-1.0); CALCIUM 10.3 mg/dL (8.4-10.2); CREATININE, serum 0.52 mg/dL (0.52-1.25); POTASSIUM 3.5 mmol/L (3.4-5.0)
[2018-05-06 13:48] LABS: PHOSPHOROUS 2.6 mg/dL (2.5-4.5)
[2018-05-06 13:49] LABS: MAGNESIUM 1.9 mg/dL (1.6-2.3)
--- NOTE | 2018-05-06 14:19 | NUR ---
Patient continues climbing out of bed, setting bed alarm off.
--- NOTE | 2018-05-06 15:19 | NUR ---
Patient very restless, trying to climb out of bed, here, states "you may have to tie her down."
--- NOTE | 2018-05-06 15:31 | NUR ---
Meeting with along with Zhanna JIMÉNEZ and student international trade manager,Ledy, to attempt to clarify goals of care. reports that he was never wanting end of life care but did want to get his at home and have some trained help to assist for period of time with his 's care. He still wants his to be a full code and want ongoing supportive care for her. When I described what hospice care would look like, he was very clear that it woudn't be what he wanted. He is aware that recommendation of Dr Bell would be an LTAC in all likelihood and that those services would be located in the [facility] or in [place]. He is aware that in-home care of pt on trilogy is not readily available in this area but we will be glad to work with the case checker africa Huggins and agencies here in [place] to try to find resources for him here. Dr Engle reported that we will continue to try to wean her off the vent but not sure that this will be able to be done. needs very clear explanations of resources to be considered to avoid further misunderstanding.
--- NOTE | 2018-05-06 16:06 | NUR ---
The patient's , Jonah, contacted COREEN this morning to inform that after meeting with Ellis at [facility], he would not want to pursue their services. Jonah reports that their nurses actually come out of [place] too and he is wanting services closer. COREEN then discussed with the patient's on how [facility] could still be an option. The patient reports that he would be agreeable for COREEN to fax them a referral. COREEN then contacted and faxed a [facility]. COREEN then attended clinical rounds. The hospitalist requested that we have another family meeting with the patient's to clarify goals. COREEN contacted Jonah and a family meeting was scheduled for 1400. COREEN and COREEN student then attended the family meeting. Also present was palliative care nurse, Joanna, and Dr. Engle (Hospitalist). The reported that he was never wanting end of life care and that hospice was not clarified before discharge from [facility]. The patient reports that he still wants supportive care and for the patient to be a full code. The patient's reports that his goal would be for the patient to return home upon discharge with help and support from some private duty care nurses. The hospitalist did discuss how Dr. Bell's recommedation would be an LTACH and how those are located in the [facility] area. Finding private care duty nurses and how they can be expensive was also discussed. COREEN discussed how she will collaborate with the patient's showcase trimmer through Leah, Brissa Fernandez, to locate resources. At this time, the plan is to try and wean the patient off the vent. COREEN then attempted to contact Brissa Fernandez, Leah Staff Development Manager, via phone. COREEN left a voicemail. CORENE also contacted and updated Ellis at [facility] and Meg at [facility]. COREEN to continue to follow to ensure a safe discharge.
[2018-05-06 16:07] LABS: ARTERIAL BLOOD GAS PCO2 39.7 mmHg (35-45); ARTERIAL BLOOD GAS pH 7.49 (7.35-7.45)
[2018-05-06 16:08] LABS: ARTERIAL BLD GAS O2 SATURATION 98.3 % (92-100); ARTERIAL BLD GAS TCO2 CT 28.7; ARTERIAL BLOOD GAS BASE EXCESS 6.2 (-2-2); ARTERIAL BLOOD GAS HCO3 29.8 meq/L (22-26); ARTERIAL BLOOD GAS PO2 179.3 mmHg (80-100)
[2018-05-06 16:12] LABS: ARTERIAL BLD GAS O2 SATURATION 96.9 % (92-100); ARTERIAL BLD GAS TCO2 CT 33.1; ARTERIAL BLOOD GAS BASE EXCESS 7.8 (-2-2); ARTERIAL BLOOD GAS HCO3 31.8 meq/L (22-26); ARTERIAL BLOOD GAS PCO2 42.5 mmHg (35-45); ARTERIAL BLOOD GAS PO2 99.5 mmHg (80-100); ARTERIAL BLOOD GAS pH 7.49 (7.35-7.45)
--- NOTE | 2018-05-06 17:00 | NUR ---
No sedation medication infusing.
--- NOTE | 2018-05-06 17:00 | NUR ---
Patient resting quietly in bed, has gone home for the evening.
--- NOTE | 2018-05-06 19:14 | NUR ---
Bedside report given to JUHI Pedro.
--- NOTE | 2018-05-06 19:45 | NUR ---
Patient assessment completed and charted at this time, please see documentation for details. Patient on ventilator, anxious at this time, versed given. Bed alarm in place. Will continue to monitor and assess.
[2018-05-07] VITALS (648 sets, daily range): BP systolic 116–139; BP diastolic 56–76; PULSE 60–69; TEMP 97.8–100.7; O2SAT 74–100
--- NOTE | 2018-05-07 00:26 | NUR ---
FIO2 DECREASED TO 40% RN NOTIFIED
[2018-05-07 05:33] LABS: ARTERIAL BLD GAS O2 SATURATION 94.6 % (92-100); ARTERIAL BLD GAS TCO2 CT 31.7; ARTERIAL BLOOD GAS BASE EXCESS 5.6 (-2-2); ARTERIAL BLOOD GAS HCO3 30.3 meq/L (22-26); ARTERIAL BLOOD GAS PCO2 45.1 mmHg (35-45); ARTERIAL BLOOD GAS PO2 80.1 mmHg (80-100); ARTERIAL BLOOD GAS pH 7.45 (7.35-7.45)
--- NOTE | 2018-05-07 07:15 | NUR ---
Bedside report recieved from JUHI Pedro.
[2018-05-07 07:28] LABS: BASO % 0.1 % (0.0-2.0); EOS # 0.2 (0.0-0.7); EOS % 2.2 % (0-4.0); GRAN # 4.5 (1.4-6.5); GRAN % 67.3 % (42.2-75.2); LYMPH # 0.9 (1.2-3.4); LYMPH % 13.2 % (20.0-51.0); MEAN CELL VOLUME 103 fl (80.0-100.0); MEAN CORPUSCULAR HGB CONC 32 g/dl (33.0-37.0); MONO # 1.1 (0.1-0.6); MONO % 16.6 % (1.7-9.3); PLATELET COUNT 217 K/mm3 (130-400); RED BLOOD COUNT 2.34 M/mm3 (4.10-5.30); REDCELL DISTRIBUTION WIDTH-CV 20.8 % (11.5-14.5)
[2018-05-07 07:35] LABS: HEMOGLOBIN 7.7 g/dl (12.5-16.0); MEAN CORPUSCULAR HEMOGLOBIN 33 pg (27.0-31.0)
[2018-05-07 07:38] LABS: BILIRUBIN,TOTAL 0.3 mg/dL (0.0-1.0); CALCIUM 10.1 mg/dL (8.4-10.2); CREATININE, serum 0.48 mg/dL (0.52-1.25); MAGNESIUM 1.7 mg/dL (1.6-2.3); PHOSPHOROUS 3.1 mg/dL (2.5-4.5); POTASSIUM 3.7 mmol/L (3.4-5.0); TOTAL PROTEIN 6.2 gm/dL (6.4-8.2)
[2018-05-07 07:52] LABS: VANCOMYCIN TROUGH 26.77 ug/mL (7.00-20.00)
--- NOTE | 2018-05-07 13:00 | NUR ---
Patient awake alert and cooperative, performs her own oral, call light within reach.
--- NOTE | 2018-05-07 16:14 | NUR ---
Bedside report given to JUHI Eugene, care assumed at this time.
--- NOTE | 2018-05-07 16:15 | NUR ---
Bedside report received from JUHI Owen. Patient repositioned at this time. VS WNL. All skin issues assessed. Shift assessment completed. Care taken over at this time.
--- NOTE | 2018-05-07 19:18 | NUR ---
Bedside report given to JUHI Pedro
--- NOTE | 2018-05-07 19:45 | NUR ---
Patient assessment completed and charted at this time, please see documentation for details. Patient in bed, bed alarm on at this time. Patient tolerating ventilator, will continue to monitor and assess.
[2018-05-08] VITALS (506 sets, daily range): BP systolic 118–152; BP diastolic 60–81; PULSE 62–99; TEMP 98.2–99.2; O2SAT 78–100
--- NOTE | 2018-05-08 05:00 | NUR ---
Patient not on sedation, no sedation vacation.
[2018-05-08 05:26] LABS: ARTERIAL BLD GAS O2 SATURATION 96.3 % (92-100); ARTERIAL BLD GAS TCO2 CT 33.4; ARTERIAL BLOOD GAS HCO3 31.9 meq/L (22-26); ARTERIAL BLOOD GAS PCO2 47.6 mmHg (35-45); ARTERIAL BLOOD GAS PO2 94.2 mmHg (80-100); ARTERIAL BLOOD GAS pH 7.44 (7.35-7.45)
[2018-05-08 05:31] LABS: BASO % 0.2 % (0.0-2.0); EOS # 0.2 (0.0-0.7); EOS % 3.6 % (0-4.0); GRAN # 3.5 (1.4-6.5); GRAN % 60.9 % (42.2-75.2); MEAN CELL VOLUME 107 fl (80.0-100.0); MEAN CORPUSCULAR HGB CONC 31 g/dl (33.0-37.0); MEAN PLATELET VOLUME 9.2 fl (7.4-10.4); PLATELET COUNT 223 K/mm3 (130-400); RED BLOOD COUNT 2.35 M/mm3 (4.10-5.30); REDCELL DISTRIBUTION WIDTH-CV 20.4 % (11.5-14.5)
[2018-05-08 05:36] LABS: HEMATOCRIT 25.2 % (37.0-47.0); HEMOGLOBIN 7.8 g/dl (12.5-16.0); MEAN CORPUSCULAR HEMOGLOBIN 33 pg (27.0-31.0)
[2018-05-08 05:41] LABS: CREATININE, serum 0.5 mg/dL (0.52-1.25); POTASSIUM 3.8 mmol/L (3.4-5.0)
--- NOTE | 2018-05-08 11:00 | NUR ---
Refuses oral care, "I did it earlier with the other lady".
--- NOTE | 2018-05-08 13:57 | NUR ---
here to visit. Notified of plan for potential discharge this week. States "I'm working with a marriage and family social worker to get help; to get a nurse to help at home." Appears to understand but asks same questions over and over again, explained and re-explained to him. Encouraged to ask questions when he has them and keep a journal to help keep information straight.
--- NOTE | 2018-05-08 17:00 | NUR ---
No sedation vacation at this time due to no sedation medication being given.
--- NOTE | 2018-05-08 19:04 | NUR ---
Report given to Willis REYNAGA
--- NOTE | 2018-05-08 19:38 | NUR ---
Patient assessment completed and charted at this time, please see documentation for details. Patient resting in bed, tolerating ventilator well at this time. No sedation on currently, call light within reach. No family present, will continue to monitor and assess.
[2018-05-09] VITALS (963 sets, daily range): BP systolic 109–147; BP diastolic 58–75; PULSE 60–91; TEMP 97.8–99.9; O2SAT 73–100
--- NOTE | 2018-05-09 05:00 | NUR ---
Patient on no sedation, no vacation performed at this time.
[2018-05-09 05:11] LABS: BASO % 0.2 % (0.0-2.0); EOS # 0.2 (0.0-0.7); EOS % 3.6 % (0-4.0); GRAN # 3.6 (1.4-6.5); GRAN % 61.1 % (42.2-75.2); LYMPH # 1.1 (1.2-3.4); LYMPH % 19.1 % (20.0-51.0); MEAN CELL VOLUME 105 fl (80.0-100.0); MEAN CORPUSCULAR HGB CONC 32 g/dl (33.0-37.0); MEAN PLATELET VOLUME 9.2 fl (7.4-10.4); MONO # 0.9 (0.1-0.6); MONO % 15.7 % (1.7-9.3); PLATELET COUNT 232 K/mm3 (130-400); REDCELL DISTRIBUTION WIDTH-CV 19.9 % (11.5-14.5)
[2018-05-09 05:14] LABS: HEMATOCRIT 25.3 % (37.0-47.0); MEAN CORPUSCULAR HEMOGLOBIN 33 pg (27.0-31.0)
[2018-05-09 05:23] LABS: CALCIUM 10.1 mg/dL (8.4-10.2); CREATININE, serum 0.46 mg/dL (0.52-1.25); POTASSIUM 3.7 mmol/L (3.4-5.0)
[2018-05-09 05:50] LABS: ARTERIAL BLD GAS O2 SATURATION 96.8 % (92-100); ARTERIAL BLOOD GAS BASE EXCESS 6.5 (-2-2); ARTERIAL BLOOD GAS HCO3 31.5 meq/L (22-26); ARTERIAL BLOOD GAS PCO2 48.4 mmHg (35-45); ARTERIAL BLOOD GAS PO2 99.9 mmHg (80-100); ARTERIAL BLOOD GAS pH 7.43 (7.35-7.45)
--- NOTE | 2018-05-09 09:37 | NUR ---
Initial visit; Patient thanked Brim Plater with a smile following being receptive of Brim Plater offering prayer and God's blessings.
--- NOTE | 2018-05-09 11:07 | NUR ---
The patient's , Jonah, contacted COREEN to inquire about any updates. The patient's reports that this weekend, a nurse talked to him about [facility]. He reports that he would be interested in [facility], but that he has questions about their accommodations and on-site housing. While COREEN was on the phone with the , Dr. Bell and the hospitalist were present. Dr. Bell informed COREEN that he would recommend [facility] for the patient. COREEN informed the patient's and he was agreeable for COREEN to contact [facility]. COREEN then contacted and faxed a referral to Arlene Baptiste at [facility]. Arlene reports they will review the patient's information and then she can speak to the about their accommodations. COREEN to inform the patient's . COREEN did attempt to contact Brissa Fernandez to update on the plan. COREEN left a voicemail and will continue to follow. Lam Chavez with [facility]: #[phone] fax#[phone]
--- NOTE | 2018-05-09 14:58 | NUR ---
left for the day. Patient denies needs at this time, call light within reach.
--- NOTE | 2018-05-09 15:58 | NUR ---
Arlene, at [facility], contacted COREEN and requested the patient's progress, respiratory, and palliative care notes. COREEN faxed those notes to Arlene. Arlene reports that she could tentatively meet with the patient and her on Wednesday, 05/11. Arlene reports that she will contact COREEN back after reviewing the notes that were faxed. COREEN to continue to follow.
--- NOTE | 2018-05-09 17:00 | NUR ---
No sedation given to patient.
--- NOTE | 2018-05-09 18:24 | NUR ---
Family in visiting with patient.
--- NOTE | 2018-05-09 19:31 | NUR ---
Bedside report given to JUHI Pedro.
--- NOTE | 2018-05-09 19:45 | NUR ---
Assessment completed and charted at this time, please see documentation for details. Patient in bed, on ventilator. Patient attempting to move out of bed. Reoriented patient to time and situation. Bed alarm on, will continue to monitor.
--- NOTE | 2018-05-09 20:42 | NUR ---
CHANGED FILTER ON VENT, DRAINED TUBING, PT SUCTIONED, ORAL CARE DONE.
--- NOTE | 2018-05-09 21:52 | NUR ---
Patient attempted to get up and out of bed, disconnected ventilator, bed alarm did not go off at this time. JUHI Clemente and this nurse placed patient back in to proper position, connected ventilator. Bed alarm back in place, reoriented patient on importance of staying in bed. Will continue to monitor.
[2018-05-10] VITALS (706 sets, daily range): BP systolic 118–144; BP diastolic 35–83; PULSE 61–87; TEMP 98–100.1; O2SAT 68–100
--- NOTE | 2018-05-10 05:00 | NUR ---
Patient has no sedation, not vacation performed at this time.
[2018-05-10 05:18] LABS: BASO % 0.4 % (0.0-2.0); EOS # 0.2 (0.0-0.7); EOS % 3.4 % (0-4.0); GRAN # 4.3 (1.4-6.5); GRAN % 64.7 % (42.2-75.2); HEMATOCRIT 26.2 % (37.0-47.0); HEMOGLOBIN 8.1 g/dl (12.5-16.0); LYMPH # 1.1 (1.2-3.4); MEAN CELL VOLUME 106 fl (80.0-100.0); MEAN CORPUSCULAR HEMOGLOBIN 33 pg (27.0-31.0); MEAN CORPUSCULAR HGB CONC 31 g/dl (33.0-37.0); MEAN PLATELET VOLUME 9.2 fl (7.4-10.4); MONO % 14.2 % (1.7-9.3); PLATELET COUNT 251 K/mm3 (130-400); RED BLOOD COUNT 2.47 M/mm3 (4.10-5.30); REDCELL DISTRIBUTION WIDTH-CV 19.7 % (11.5-14.5)
[2018-05-10 05:38] LABS: CALCIUM 10.3 mg/dL (8.4-10.2); CREATININE, serum 0.44 mg/dL (0.52-1.25); POTASSIUM 3.5 mmol/L (3.4-5.0)
--- NOTE | 2018-05-10 06:50 | NUR ---
BEDSIDE SHIFT REPORT RECEIVED FROM NICK REYNAGA.
--- NOTE | 2018-05-10 09:00 | NUR ---
PT ATTEMPTING TO GET OUT OF BED. PT REPOSITIONED FOR COMFORT. PT REORIENTED. PT CONFUSED AND STATES SHE NEEDS TO GET UP TO GO LET HER DOG OUT.
--- NOTE | 2018-05-10 09:00 | NUR ---
RECTAL FECAL SYSTEM REMOVED. PT TOLERATED WELL. ALL PT LINENS CHANGED, BARRIER CREAM APPLIED TO COCCYX D/T EXCORIATION.
--- NOTE | 2018-05-10 10:21 | NUR ---
The patient's , Jonah, contacted COREEN for any updates on the referral to [facility]. COREEN informed the patient's on how Lina is still reviewing the patient's notes. COREEN then discussed other LTACH options, such as [facility], for a second preference in case [facility] is unable to accept. The patient reports that he had been working with [facility] in the past and would prefer them as a second preference. COREEN then contacted and faxed a referral to [facility]. COREEN attempted to contact Arlene at [facility] for any updates. COREEN left a voicemail. COREEN also attempted to contact Brissa Fernandez, [facility] Cloth Stock Sorter, to update. COREEN left a voicemail and will continue to follow. [facility] #[phone] fax#[phone]
--- NOTE | 2018-05-10 11:34 | NUR ---
PT RESTING COMFORTABLY AT THIS TIME.
--- NOTE | 2018-05-10 18:43 | NUR ---
PT SOUNDS VERY HOARSE WITH MODERATE AMT OF UPPER AIRWAY RESTRICTION. PT HAS DRY, NONPRODUCTIVE COUGH.
--- NOTE | 2018-05-10 19:20 | NUR ---
Report received from Marika REYNAGA. Pt resting in bed at this time with glasses on.
[2018-05-11] VITALS (882 sets, daily range): BP systolic 93–124; BP diastolic 44–78; PULSE 64–79; TEMP 97.9–99.8; O2SAT 53–100
--- NOTE | 2018-05-11 02:17 | NUR ---
trach care done, gee changed, vent filter changed, tubing drained, vent water changed, oral care done. pt tolerating well.
--- NOTE | 2018-05-11 05:00 | NUR ---
Pt is not currently on any sedation medication. Sedation vacation does not apply at this time. Pt is resting quiety in bed with the television on but on silent.
[2018-05-11 06:27] LABS: BASO % 0.5 % (0.0-2.0); EOS # 0.2 (0.0-0.7); EOS % 3.7 % (0-4.0); GRAN % 66.7 % (42.2-75.2); MEAN CELL VOLUME 105 fl (80.0-100.0); MEAN CORPUSCULAR HGB CONC 32 g/dl (33.0-37.0); MEAN PLATELET VOLUME 9.1 fl (7.4-10.4); MONO # 0.8 (0.1-0.6); MONO % 12.8 % (1.7-9.3); PLATELET COUNT 253 K/mm3 (130-400); RED BLOOD COUNT 2.43 M/mm3 (4.10-5.30); REDCELL DISTRIBUTION WIDTH-CV 19.6 % (11.5-14.5)
[2018-05-11 06:35] LABS: CALCIUM 9.8 mg/dL (8.4-10.2); CREATININE, serum 0.49 mg/dL (0.52-1.25); POTASSIUM 3.6 mmol/L (3.4-5.0)
[2018-05-11 06:38] LABS: HEMATOCRIT 25.5 % (37.0-47.0); HEMOGLOBIN 8.1 g/dl (12.5-16.0); MEAN CORPUSCULAR HEMOGLOBIN 33 pg (27.0-31.0)
--- NOTE | 2018-05-11 07:11 | NUR ---
Report provided to Aubrie Vargas RN.
--- NOTE | 2018-05-11 07:40 | NUR ---
ORAL CARE NOT COMPLETED AT THIS TIME. PT REFUSED.
--- NOTE | 2018-05-11 08:00 | NUR ---
PATIENT RESTING IN BED. SHE IS AWAKE AND LOOKING AROUND. SHE IS CALM AND RELAXED. ASSESSMENT WAS COMPLETED. NEW BOTTLE OF TUBE FEEDING HUNG AND TUBING CHANGED. PRO MOD 60 ML GIVEN. PATIENT ON VENTILATOR. DENIES FURTHER REQUESTS.
--- NOTE | 2018-05-11 08:10 | NUR ---
PICC intact right upper arm with sterile dressing change done with insertion site cleansed with chloraprep x 1, chlorhexidine impregnated disk applied, skin prep, stat lock, and tegaderm applied. no signs or symptoms of IV complications noted. no concerns voiced. re-wrapped with dorian to protect catheter.
--- NOTE | 2018-05-11 09:08 | NUR ---
COREEN contacted Arlene at [facility] for any updates on the referral. Arlene reports that she plans to tentatively meet with the patient and patient's today, 05/11. Arlene reports that she will contact COREEN with a estimated time. COREEN to continue to follow.
--- NOTE | 2018-05-11 09:10 | NUR ---
DR. OLIVA AT BEDSIDE TO SEE PATIENT. NO NEW ORDERS.
--- NOTE | 2018-05-11 10:23 | NUR ---
COREEN contacted Arlene at [facility]. Arlene reports that she plans to meet with the patient around 1300 today, 05/11. SW to then follow up with Arlene and the patient's . Brissa Fernandez, [facility] Field Training Agent, also contacted COREEN to inform that she had received my voicemail and that she will continue to follow along with the case. SW to continue to follow.
--- NOTE | 2018-05-11 12:00 | NUR ---
PATIENT RESTING IN BED. SHE WAS BOOSTED UP IN THE BED AND REPOSITIONED. PATIENT DENIES ANY FURTHER NEEDS AT THIS TIME.
--- NOTE | 2018-05-11 15:14 | NUR ---
Arlene, at [facility], arrived at the hospital to meet with the patient and patient's , Jonah. Arlene then met with COREEN after. Arlene reports that she will need to contact [facility] and update her team on what she and the patient's spoke about. Arlene requested updates. SW to fax updates to Arlene at [facility]. Keli, from [facility], then contacted and reports that they can accept the patient at their LTACH. SW to inform the patient's and continue to follow.
--- NOTE | 2018-05-11 15:39 | NUR ---
Patient assisted in getting out of bed to the recliner. She was a heavy 2 assist with RT at bedside.
--- NOTE | 2018-05-11 17:00 | NUR ---
SEDATION VACATION NOT DONE DUE TO PATIENT NOT BEING ON ANY FORM OF SEDATION.
--- NOTE | 2018-05-11 19:34 | NUR ---
REPORT GIVEN TO JUHI YANG.
--- NOTE | 2018-05-11 21:51 | NUR ---
PEG TUBE SITE CLEANSED WITH GAUZE AND STERILE WATER, PINK IN COLOR AND A LITTLE BIT OF DRAINAGE NOTED. SPLIT GAUZE PLACED, NOW CLEAN AND DRY.
[2018-05-12] VITALS (461 sets, daily range): BP systolic 96–116; BP diastolic 52–73; PULSE 65–78; TEMP 98–99.5; O2SAT 62–100
--- NOTE | 2018-05-12 02:22 | NUR ---
PT SUCTIONED FOR SMALL AMOUNT OF CLEAR SECRETIONS.
[2018-05-12 05:49] LABS: ARTERIAL BLD GAS O2 SATURATION 97.2 % (92-100); ARTERIAL BLD GAS TCO2 CT 32.8; ARTERIAL BLOOD GAS BASE EXCESS 6.4 (-2-2); ARTERIAL BLOOD GAS HCO3 31.3 meq/L (22-26); ARTERIAL BLOOD GAS PCO2 47.5 mmHg (35-45); ARTERIAL BLOOD GAS PO2 106.5 mmHg (80-100); ARTERIAL BLOOD GAS pH 7.44 (7.35-7.45)
--- NOTE | 2018-05-12 06:06 | NUR ---
PT CURRENTLY NOT ON ANY SEDATIVE/MEDICATION.
[2018-05-12 06:08] LABS: BASO % 0.5 % (0.0-2.0); EOS # 0.2 (0.0-0.7); EOS % 4.2 % (0-4.0); GRAN # 3.6 (1.4-6.5); GRAN % 62.6 % (42.2-75.2); LYMPH # 1.1 (1.2-3.4); LYMPH % 19.8 % (20.0-51.0); MEAN CELL VOLUME 106 fl (80.0-100.0); MEAN CORPUSCULAR HGB CONC 32 g/dl (33.0-37.0); MEAN PLATELET VOLUME 9.1 fl (7.4-10.4); MONO # 0.7 (0.1-0.6); MONO % 12.7 % (1.7-9.3); PLATELET COUNT 244 K/mm3 (130-400); RED BLOOD COUNT 2.35 M/mm3 (4.10-5.30); REDCELL DISTRIBUTION WIDTH-CV 19.4 % (11.5-14.5)
[2018-05-12 06:17] LABS: CALCIUM 9.9 mg/dL (8.4-10.2); CREATININE, serum 0.5 mg/dL (0.52-1.25); MAGNESIUM 1.8 mg/dL (1.6-2.3); POTASSIUM 3.7 mmol/L (3.4-5.0)
[2018-05-12 06:18] LABS: HEMATOCRIT 24.9 % (37.0-47.0); HEMOGLOBIN 7.9 g/dl (12.5-16.0); MEAN CORPUSCULAR HEMOGLOBIN 34 pg (27.0-31.0)
--- NOTE | 2018-05-12 13:56 | NUR ---
COREEN attempted to contact Arlene at [facility] on whether they are able to accept the patient. COREEN left a voicemail. COREEN then contacted [facility] admission. Admission provided COREEN with Peggy, another liason at [facility]. Admissions also sent an urgent email to Arlene. COREEN attempted to contact Peggy. COREEN left a voicemail. COREEN then received a voicemail from Arlene. Arlene reports that their tree killer account support manager is requesting to talk to [facility]'s medical doctor. Arlene reports that their is a lot to dig through and that it is going to take time to get an answer. COREEN then contacted Yung at [facility]. Yung reports that they could accept the patient tomorrow, 05/13. COREEN contacted the patient's to inform. The patient's reports that he would be agreeable for the patient to go to [facility], if [facility] does not have an official answer by the morning. The patient's reports that he will contact COREEN in the morning. COREEN faxed updates to [facility] and will continue to follow.
--- NOTE | 2018-05-12 14:13 | NUR ---
Patient visiting in room, patient denies needs at this time.
--- NOTE | 2018-05-12 17:00 | NUR ---
No sedation vacation, patient not sedated.
--- NOTE | 2018-05-12 19:05 | NUR ---
Bedside report received from Lexie. Pt resting in bed with lights on in room, television on and call light in hand. Pt was making wants and needs known by writting on a white board to staff.
--- NOTE | 2018-05-12 19:07 | NUR ---
Bedside report given to JUHI Oates.
--- NOTE | 2018-05-12 21:00 | NUR ---
Pt assessment complete. Pt with noted nystagmus bilaterally. Intermittent quivering of the lower chin noted at this time. Pt denies feeling cold or any pain. Has been communicating so far this shift with head motions and writting on a white board kept with in reach of pt on bedside table. DIMA boot alternated from the left foot, placed during shift change per pt request, to the right foot at this time. Pt was unable to write the correct year although reported all other questions including the month correctly. Gauze in place under PEG tube at the insertion site. Personal belongings and call light with in reach at this time.
--- NOTE | 2018-05-12 21:45 | NUR ---
Lab called with negative RSV results informing this nurse that imput would not occur until tomorrow. Report of negative results were read back to confirm.
--- NOTE | 2018-05-12 23:00 | NUR ---
Pt refused oral care at this time.
[2018-05-13] VITALS (631 sets, daily range): BP systolic 95–150; BP diastolic 51–81; PULSE 66–87; TEMP 97.9–99.4; O2SAT 43–100
--- NOTE | 2018-05-13 06:00 | NUR ---
Pt continued to decline oral care through out the shift although encouraged and asked by staff Q2hr.
[2018-05-13 06:16] LABS: BASO % 0.5 % (0.0-2.0); EOS # 0.2 (0.0-0.7); EOS % 4.4 % (0-4.0); GRAN # 3.6 (1.4-6.5); GRAN % 65.6 % (42.2-75.2); LYMPH # 0.9 (1.2-3.4); LYMPH % 16.5 % (20.0-51.0); MEAN CELL VOLUME 107 fl (80.0-100.0); MEAN CORPUSCULAR HGB CONC 31 g/dl (33.0-37.0); MONO # 0.7 (0.1-0.6); MONO % 12.6 % (1.7-9.3); PLATELET COUNT 235 K/mm3 (130-400); RED BLOOD COUNT 2.31 M/mm3 (4.10-5.30); REDCELL DISTRIBUTION WIDTH-CV 18.9 % (11.5-14.5)
[2018-05-13 06:26] LABS: HEMATOCRIT 24.6 % (37.0-47.0); HEMOGLOBIN 7.7 g/dl (12.5-16.0); MEAN CORPUSCULAR HEMOGLOBIN 33 pg (27.0-31.0)
[2018-05-13 06:30] LABS: BILIRUBIN,TOTAL 0.2 mg/dL (0.0-1.0); CALCIUM 9.8 mg/dL (8.4-10.2); CREATININE, serum 0.48 mg/dL (0.52-1.25); MAGNESIUM 1.9 mg/dL (1.6-2.3); POTASSIUM 3.8 mmol/L (3.4-5.0); TOTAL PROTEIN 6.2 gm/dL (6.4-8.2)
--- NOTE | 2018-05-13 07:10 | NUR ---
Report provided to Lexi Bravo RN. Pt resting in bed with eyes closed at this time with personal belongings and call light with in reach. Pt currently has glasses on face.
--- NOTE | 2018-05-13 07:10 | NUR ---
report recieved from Lashon REYNAGA. Patient sleeps in bed, eyes closed. Call light at side. Vent settings reviewed
--- NOTE | 2018-05-13 09:16 | NUR ---
COREEN contacted Arlene at [facility]. Arlene reports that the patient's case was presented to [facility]'s Automotive Product Specialist. Arlene reports that she does not feel positive that the medical lab specialist will accept the patient. Arlene reports that she will keep SW updated, but that she does not know when she will have a definite yes or no from their team at [facility]. COREEN then contacted the patient's , Jonah, to update. Jonah reports that he is agreeable to pursue [facility]. COREEN then contacted Nancy at [facility]. Nancy reports that they could accept the patient today, but that they still need approval from the patient's insurance. Nancy reports that they started authorization with [facility] yesterday, 05/12. COREEN contacted Brissa Fernandez, [facility] [employer] Machine Operator. Brissa reports that she will also submit a request to the patient's insurance for [facility]. Brissa reports that there is still a request from [facility] to [facility] and that it could take insurance a little longer to approve/deny her stay. Brissa reports that she will keep COREEN updated. COREEN to continue to follow.
--- NOTE | 2018-05-13 14:27 | NUR ---
Arlene, at [facility], reports that they have declined the patient and that she is going to contact the patient's to inform. SW to continue to follow.
--- NOTE | 2018-05-13 15:50 | NUR ---
Spoke with Facilities Painter, Zhanna, states still has not heard from [facility]. Awaiting return calls to their SW. Will let RN know as information is recieved.
--- NOTE | 2018-05-13 17:00 | NUR ---
PT REFUSED ORAL CARE AT THIS TIME.
--- NOTE | 2018-05-13 19:05 | NUR ---
Report given to Mayra REYNAGA.
[2018-05-14] VITALS (134 sets, daily range): BP systolic 99–119; BP diastolic 58–81; PULSE 65–81; TEMP 98–99.1; O2SAT 33–100
--- NOTE | 2018-05-14 00:49 | NUR ---
PT REQUESTED NO ORAL CARE AT THIS TIME
[2018-05-14 05:45] LABS: BASO % 0.6 % (0.0-2.0); EOS # 0.2 (0.0-0.7); EOS % 4.5 % (0-4.0); GRAN % 58.7 % (42.2-75.2); LYMPH # 1.1 (1.2-3.4); MEAN CELL VOLUME 106 fl (80.0-100.0); MEAN CORPUSCULAR HGB CONC 31 g/dl (33.0-37.0); MEAN PLATELET VOLUME 9.3 fl (7.4-10.4); MONO # 0.7 (0.1-0.6); MONO % 13.8 % (1.7-9.3); PLATELET COUNT 254 K/mm3 (130-400); RED BLOOD COUNT 2.39 M/mm3 (4.10-5.30); REDCELL DISTRIBUTION WIDTH-CV 18.6 % (11.5-14.5)
[2018-05-14 05:51] LABS: HEMATOCRIT 25.3 % (37.0-47.0); HEMOGLOBIN 7.8 g/dl (12.5-16.0); MEAN CORPUSCULAR HEMOGLOBIN 33 pg (27.0-31.0)
[2018-05-14 06:04] LABS: CALCIUM 9.9 mg/dL (8.4-10.2); CREATININE, serum 0.48 mg/dL (0.52-1.25); POTASSIUM 3.6 mmol/L (3.4-5.0)
--- NOTE | 2018-05-14 07:10 | NUR ---
Bedside report recieved from JUHI Nunez. Patient with 7.[address] and ventilated at ordered settings. PEDRO PICC clamped and locked, right chest PAC clamped and locked. TF in progress to PEG tube without complication noted. Patient participates in report through use of whiteboard and marker. Bed in low and locked position, call light within reach. Care assumed at this time.
--- NOTE | 2018-05-14 12:58 | NUR ---
Patient at bedside and updated to POC. All questions asked answered.
--- NOTE | 2018-05-14 18:58 | NUR ---
Bedside report provided to JUHI Nunez. Care transferred.
[2018-05-15] VITALS (925 sets, daily range): BP systolic 106–120; BP diastolic 56–89; PULSE 63–72; TEMP 97.9–98.8; O2SAT 43–100
--- NOTE | 2018-05-15 06:50 | NUR ---
Report recieved from JUHI Nunez. Patient resting in bed ventilated through trach at ordered settings. TF to PEG tube running at ordered rate. Patient denies needs. Bed in low and locked position, call light within reach, rails up x3 and bed alarm armed. Care assumed.
[2018-05-15 07:22] LABS: BASO % 0.4 % (0.0-2.0); EOS # 0.2 (0.0-0.7); EOS % 4.4 % (0-4.0); GRAN # 3.3 (1.4-6.5); GRAN % 63.8 % (42.2-75.2); LYMPH % 18.7 % (20.0-51.0); MEAN CELL VOLUME 106 fl (80.0-100.0); MEAN CORPUSCULAR HGB CONC 31 g/dl (33.0-37.0); MEAN PLATELET VOLUME 9.2 fl (7.4-10.4); MONO # 0.7 (0.1-0.6); MONO % 12.5 % (1.7-9.3); PLATELET COUNT 258 K/mm3 (130-400); RED BLOOD COUNT 2.41 M/mm3 (4.10-5.30); REDCELL DISTRIBUTION WIDTH-CV 18.5 % (11.5-14.5)
[2018-05-15 07:54] LABS: HEMATOCRIT 25.6 % (37.0-47.0); HEMOGLOBIN 7.9 g/dl (12.5-16.0); MEAN CORPUSCULAR HEMOGLOBIN 33 pg (27.0-31.0)
[2018-05-15 08:01] LABS: CREATININE, serum 0.49 mg/dL (0.52-1.25); POTASSIUM 3.9 mmol/L (3.4-5.0)
--- NOTE | 2018-05-15 09:19 | NUR ---
Dr. Ervin rounds at this time. Orders as entered CPOE.
--- NOTE | 2018-05-15 10:16 | NUR ---
Dr. Nesbitt rounds at this time. No new orders recieved.
--- NOTE | 2018-05-15 20:15 | NUR ---
Patient assessment completed and charted at this time, please see documentation for details. Patient in bed, on ventilator via trach. No new questions at this time.
[2018-05-16] VITALS (411 sets, daily range): BP systolic 103–111; BP diastolic 42–76; PULSE 64–70; TEMP 97.6–99; O2SAT 66–100
--- NOTE | 2018-05-16 00:59 | NUR ---
IF PT SLEEPING WANTS ORAL CARE TO NOT BE DONE. WILL JUST DO VENT CHECKS AND TREATMENTS
--- NOTE | 2018-05-16 01:00 | NUR ---
Refused oral care while sleeping.
[2018-05-16 05:30] LABS: BASO % 0.3 % (0.0-2.0); EOS # 0.2 (0.0-0.7); EOS % 3.5 % (0-4.0); GRAN # 4.7 (1.4-6.5); GRAN % 69.5 % (42.2-75.2); LYMPH % 15.1 % (20.0-51.0); MEAN CELL VOLUME 106 fl (80.0-100.0); MEAN CORPUSCULAR HGB CONC 31 g/dl (33.0-37.0); MEAN PLATELET VOLUME 9.2 fl (7.4-10.4); MONO # 0.8 (0.1-0.6); MONO % 11.5 % (1.7-9.3); PLATELET COUNT 254 K/mm3 (130-400); REDCELL DISTRIBUTION WIDTH-CV 18.1 % (11.5-14.5)
[2018-05-16 05:36] LABS: HEMATOCRIT 26.4 % (37.0-47.0); HEMOGLOBIN 8.3 g/dl (12.5-16.0); MEAN CORPUSCULAR HEMOGLOBIN 33 pg (27.0-31.0)
[2018-05-16 05:43] LABS: CALCIUM 10.1 mg/dL (8.4-10.2); CREATININE, serum 0.49 mg/dL (0.52-1.25); POTASSIUM 3.6 mmol/L (3.4-5.0)
--- NOTE | 2018-05-16 11:58 | NUR ---
COREEN called [facility] for update. They need clinical updates faxed to them and they will send to [facility]. SW faxed updates and will follow up.
--- NOTE | 2018-05-16 15:31 | NUR ---
COREEN called Brissa from [facility] who reports it is still pending but that they have all of the information they need. [facility] reports they have sent all of the information on and will check with [facility] again today. COREEN to follow.
--- NOTE | 2018-05-16 17:00 | NUR ---
COREEN and SW student met with patient, , and family to provide update. Patients would like a call tomorrow morning when we hear from [facility] or . SW provided her cell number to him to contact with any questions.
--- NOTE | 2018-05-16 23:41 | NUR ---
Patient tolerating ventilator via trach at this time. No new issues to report, will continue to monitor and assess.
[2018-05-17] VITALS (349 sets, daily range): BP systolic 106–112; BP diastolic 60–94; PULSE 60–78; TEMP 98.5–99.3; O2SAT 57–100
[2018-05-17 06:08] LABS: BASO % 0.5 % (0.0-2.0); EOS # 0.4 (0.0-0.7); EOS % 5.7 % (0-4.0); GRAN # 3.8 (1.4-6.5); GRAN % 60.8 % (42.2-75.2); LYMPH # 1.3 (1.2-3.4); LYMPH % 20.9 % (20.0-51.0); MEAN CELL VOLUME 105 fl (80.0-100.0); MEAN CORPUSCULAR HGB CONC 31 g/dl (33.0-37.0); MEAN PLATELET VOLUME 9.2 fl (7.4-10.4); MONO # 0.8 (0.1-0.6); MONO % 11.9 % (1.7-9.3); PLATELET COUNT 263 K/mm3 (130-400); RED BLOOD COUNT 2.63 M/mm3 (4.10-5.30); REDCELL DISTRIBUTION WIDTH-CV 17.9 % (11.5-14.5)
[2018-05-17 06:12] LABS: HEMATOCRIT 27.7 % (37.0-47.0); HEMOGLOBIN 8.7 g/dl (12.5-16.0); MEAN CORPUSCULAR HEMOGLOBIN 33 pg (27.0-31.0)
[2018-05-17 06:16] LABS: CALCIUM 10.4 mg/dL (8.4-10.2); CREATININE, serum 0.51 mg/dL (0.52-1.25)
--- NOTE | 2018-05-17 08:30 | NUR ---
PICC intact right upper arm with sterile dressing change done with insertion site cleansed with chloraprep x 1, chlorhexidine impregnate disk applied, skin prep, stat lock, and tegaderm applied. no signs or symptoms of IV complications noted. no concerns voiced.
--- NOTE | 2018-05-17 12:01 | NUR ---
SW attempted to contact Brissa at [facility] and Yvonne, left vm for both. Patients called, elif updated status. ELIF called yvonne again who reports they just heard from [facility] that they are still reviewing the case.
--- NOTE | 2018-05-17 14:24 | NUR ---
Patient accepted to [facility] with acceptance today. COREEN called patients to inform him. Transport set up for 3:30 with [facility]. COREEN faxed discharge orders and clinical updates to [facility]. Nurse to Nurse number provided [phone]. Transport paperwork signed by and given to nurse. Patient is DC today to [facility] via EMS. No other needs at this time.
--- NOTE | 2018-05-17 14:55 | NUR ---
CALLED REPORT TO TARSHA ROCHE RN. PATIENT IS GOING TO ROOM 406 PER MAHAD, PATIENT LIAISON. NO QUESTIONS FROM [facility] STAFF AT THIS TIME.
--- NOTE | 2018-05-17 15:56 | NUR ---
Patient left via [facility].
== END 2018-05-17 15:56 | DRG 207 ==
LOC: COL.ER 01:54 → ICU 06:58
PROVIDERS: Anesthesiology Critical Care Medicine; Emergency Medicine; Hospitalist; Internal Medicine; Internal Medicine Critical Care Medicine; Internal Medicine Pulmonary Disease; Physician Assistant
PROC: 5A1955Z Respiratory Ventilation, Greater than 96 Consecutive Hours (ICD-10-PCS; principal; 2018-05-04)
DX: J15.212 Pneumonia due to Methicillin resistant Staphylococcus aureus (principal); J96.21 Acute and chronic respiratory failure with hypoxia; G73.1 Lambert-Eaton syndrome in neoplastic disease; J44.0 Chronic obstructive pulmonary disease with (acute) lower respiratory infection; C34.11 Malignant neoplasm of upper lobe, right bronchus or lung; Z99.11 Dependence on respirator [ventilator] status; J44.9 Chronic obstructive pulmonary disease, unspecified; I10 Essential (primary) hypertension; Z87.891 Personal history of nicotine dependence; M21.372 Foot drop, left foot; M21.371 Foot drop, right foot; E11.65 Type 2 diabetes mellitus with hyperglycemia; E83.52 Hypercalcemia; D64.9 Anemia, unspecified; R19.7 Diarrhea, unspecified; Z93.0 Tracheostomy status
CPT/HCPCS: 99223-AI; 99231-AI; 99232-AI; 99233-AI; 99239; A4216; A4314; C1751; C1894; J1650; J1956; J2185; J2250; J2543; J2550; J3010; J3370; J3475; J7030; J7050; J7120; P9016; Q9967